=== PATIENT | male | born 1945 | race African-American/Black ===

== ENCOUNTER 2023-04-18 14:09 | Inpatient (IN) | payer OTHER ==
[2023-04-18 14:36] VITALS: BMI 20.9
[2023-04-18 15:22] LABS: VENOUS BASE EXCESS -2.4 mmol/L (-2-2); VENOUS O2 SATURATION 56.8 % (70-80); VENOUS PCO2 45.7 mmHg (38-52); VENOUS PH 7.33 (7.310-7.410)
[2023-04-18 15:23] LABS: HEMOGLOBIN 7.4 GM/dL (11.7-16.9); MCH 29.6 pg (25.7-33.7); MCHC 32.4 g/dl (32.0-35.9); MEAN CELL VOLUME 91.5 fl (80-96); PLATELET COUNT 131 10^3/uL (134-434); RBC 2.51 M/mm3 (4.00-5.60); WHITE BLOOD COUNT 15.3 K/mm3 (4.0-10.0)
[2023-04-18 15:31] LABS: INR 1.16 (0.83-1.09); PROTHROMBIN TIME (PATIENT) 13.4 SEC (9.7-13.0)
[2023-04-18 15:33] LABS: ACTIVATED PTT 41.4 SECONDS (25.2-36.5)
[2023-04-18] MEDS ORDERED: VANCOMYCIN 1 GRAM (PRE-DOCKED) 1,000 MG/250 ML BAG IVPB ONE ×2 (15:34→18:12)
[2023-04-18] MEDS ORDERED: PIPERACILLIN/TAZOB 4.5 GM 4.5 GM in DEXTROSE 5%-WATER 100 ML IVPB ONE (15:34)
[2023-04-18] MEDS ORDERED: SODIUM CHLORIDE 0.9% 500 ML INFUS.BAG IV ONE (15:49)
[2023-04-18 15:57] LABS: ANISOCYTOSIS 0; CORRECTED WBC 11.17 K/mm3; HELMET CELLS 0; HOWELL-JOLLY BODIES 0; MACROCYTOSIS 0; OVALOCYTE 0; ROULEAU 0; SICKELED CELLS 0; TARGET CELLS 0; TEAR DROP CELLS 0; TOXIC GRANULATION 0
[2023-04-18 16:06] LABS: POTASSIUM 3.5 mmol/L (3.5-5.1)
[2023-04-18 16:07] LABS: CALCIUM 8.4 mg/dL (8.5-10.1)
[2023-04-18 16:08] LABS: ALBUMIN 1.5 g/dl (3.4-5.0); BLOOD UREA NITROGEN 42.9 mg/dL (7-18); MAGNESIUM 1.8 mg/dL (1.8-2.4)
[2023-04-18 16:11] LABS: CREATININE 4.5 mg/dL (0.55-1.3)
[2023-04-18 16:13] LABS: BILIRUBIN,TOTAL 0.6 mg/dL (0.2-1); TOT PROT 6.9 g/dl (6.4-8.2)
[2023-04-18] MEDS ORDERED: PIPERACILLIN/TAZOB 4.5 GM 4.5 GM/100 ML BAG IVPB ONE (17:03)
[2023-04-18 17:43] LABS: EPI CELLS 12 /uL (0-25.1); HYALINE CASTS 6 /uL (0-3.1); URINE APPEARANCE TURBID; URINE BACTERIA >9,000 /uL (0-1359); URINE BILIRUBIN NEGATIVE (NEGATIVE); URINE COLOR YELLOW; URINE GLUCOSE (UA) NEGATIVE (NEGATIVE); URINE KETONE NEGATIVE (NEGATIVE); URINE LEUK ESTERASE 3+ (NEGATIVE); URINE NITRITE POSITIVE (NEGATIVE); URINE PROTEIN 3+ (NEGATIVE); URINE RBC 2251 /uL (0-23.9); URINE WBC 7324 /uL (0-25.8)
[2023-04-18] MEDS ORDERED: LACTATED RINGERS SOLUTION 1000 ML INFUS.BAG IV ONE (21:29)
[2023-04-18] MEDS ORDERED: SODIUM CHLORIDE 0.9% 1000 ML INFUS.BAG IV ONE (21:33)
[2023-04-18 22:42] LABS: BASO % 0.8 % (0-2.0); EOS % 0.4 % (0-4.5); HEMATOCRIT 20.8 % (35.4-49); MCH 29.2 pg (25.7-33.7); MEAN CELL VOLUME 91.1 fl (80-96); MEAN PLT VOLUME 9.2 fl (7.5-11.1); MONO % 4.7 % (3.8-10.2); NEUT % 77.1 % (42.8-82.8); PLATELET COUNT 130 10^3/uL (134-434); RBC 2.28 M/mm3 (4.00-5.60); RDW 16.7 % (11.9-15.9)
[2023-04-18 22:51] LABS: HEMOGLOBIN 6.7 GM/dL (11.7-16.9)
[2023-04-18 23:14] LABS: N-TERMINAL BNP 900.7 pg/ml (5-450)
[2023-04-18 23:24] LABS: ANISOCYTOSIS 2+; MACROCYTOSIS 0; ROULEAU 1+; TARGET CELLS 1+; TEAR DROP CELLS 1+
[2023-04-18 23:55] LABS: RETICULOCYTES 3.82 % (0.5-1.5)
[2023-04-18 23:56] LABS: BILIRUBIN,DIRECT 0.4 mg/dL (0.0-0.2)
[2023-04-18 23:59] LABS: BILIRUBIN,TOTAL 0.6 mg/dL (0.2-1)
[2023-04-19 00:16] LABS: ERYTHROCYTE SEDIMENTATION RATE 79 mm/hr (0-20)
[2023-04-19] MEDS ORDERED: VANCOMYCIN 1,000 MG in DEXTROSE 5%-WATER - 250 ML IVPB SCH (02:15)
[2023-04-19 09:58] LABS: HEMOGLOBIN 7.4 GM/dL (11.7-16.9); MCH 28.6 pg (25.7-33.7); MCHC 31.9 g/dl (32.0-35.9); MEAN CELL VOLUME 89.5 fl (80-96); MEAN PLT VOLUME 9.3 fl (7.5-11.1); PLATELET COUNT 127 10^3/uL (134-434); RBC 2.57 M/mm3 (4.00-5.60); RDW 16.6 % (11.9-15.9)
[2023-04-19 09:59] LABS: WHITE BLOOD COUNT 23.8 K/mm3 (4.0-10.0)
[2023-04-19 10:06] LABS: POTASSIUM 3.4 mmol/L (3.5-5.1)
[2023-04-19 10:11] LABS: BLOOD UREA NITROGEN 40.6 mg/dL (7-18); CALCIUM 7.8 mg/dL (8.5-10.1); MAGNESIUM 1.6 mg/dL (1.8-2.4)
[2023-04-19 10:14] LABS: CREATININE 4.5 mg/dL (0.55-1.3)
[2023-04-19 10:53] LABS: ANISOCYTOSIS 1+; CORRECTED WBC 14.78 K/mm3; MACROCYTOSIS 1+; TARGET CELLS 2+
[2023-04-19] MEDS: MEROPENEM 1 GM in DEXTROSE 5%-WATER 100 ML IVPB SCH (13:06)
[2023-04-19] MEDS ORDERED: VANCOMYCIN/WATER FOR INJ (PEG) 750 MG/150 ML BAG IVPB SCH (18:00)
[2023-04-20 09:32] LABS: HEMATOCRIT 26.6 % (35.4-49); HEMOGLOBIN 8.6 GM/dL (11.7-16.9); MCH 29.3 pg (25.7-33.7); MCHC 32.5 g/dl (32.0-35.9); MEAN CELL VOLUME 90.3 fl (80-96); MEAN PLT VOLUME 9.4 fl (7.5-11.1); PLATELET COUNT 158 10^3/uL (134-434); RBC 2.94 M/mm3 (4.00-5.60); RDW 16.6 % (11.9-15.9)
[2023-04-20 09:33] LABS: WHITE BLOOD COUNT 22.6 K/mm3 (4.0-10.0)
[2023-04-20 09:41] LABS: CHLORIDE 114 mmol/L (98-107); POTASSIUM 3.5 mmol/L (3.5-5.1); SODIUM 146 mmol/L (136-145)
[2023-04-20 09:45] LABS: CALCIUM 8.4 mg/dL (8.5-10.1)
[2023-04-20 09:46] LABS: ANION GAP 11 mmol/L (4-13); CO2 21 mmol/L (21-32)
[2023-04-20 09:49] LABS: CREATININE 4.8 mg/dL (0.55-1.3); GLUCOSE,RANDOM 45 mg/dL (74-106)
[2023-04-20] MEDS: MEROPENEM 1 GM in DEXTROSE 5%-WATER 100 ML IVPB SCH (09:50)
[2023-04-20 10:13] LABS: ANISOCYTOSIS 1+; CORRECTED WBC 13.14 K/mm3; MACROCYTOSIS 1+
[2023-04-20] MEDS ORDERED: DEXTROSE 50%-WATER 25 GM/50 ML DISP.SYRIN ONE (10:34)
[2023-04-20] MEDS ORDERED: DEXTROSE 50%-WATER 25 GM/50 ML DISP.SYRIN IVPUSH ONE (10:45)
[2023-04-20] MEDS: DEXTROSE 10%-WATER - 1,000 ML IV SCH (10:45)
[2023-04-20] MEDS ORDERED: VANCOMYCIN/WATER FOR INJ (PEG) 750 MG/150 ML BAG IVPB SCH (18:00)
[2023-04-21] MEDS: DEXTROSE 10%-WATER - 1,000 ML IV SCH (10:59)
[2023-04-21] MEDS: MEROPENEM 1 GM in DEXTROSE 5%-WATER 100 ML IVPB SCH (10:59)
[2023-04-21] MEDS: AMINO ACIDS 4.25%/D5W 1,000 ML IV SCH (14:09)
[2023-04-22] MEDS: AMINO ACIDS 4.25%/D5W 1,000 ML IV SCH ×2 (01:44→17:29)
[2023-04-22 09:46] LABS: HEMATOCRIT 27.8 % (35.4-49); MCH 29.3 pg (25.7-33.7); MCHC 32.5 g/dl (32.0-35.9); MEAN CELL VOLUME 90.4 fl (80-96); MEAN PLT VOLUME 9.1 fl (7.5-11.1); PLATELET COUNT 160 10^3/uL (134-434); RBC 3.08 M/mm3 (4.00-5.60); RDW 16.9 % (11.9-15.9)
[2023-04-22 09:58] LABS: POTASSIUM 3.9 mmol/L (3.5-5.1)
[2023-04-22 10:05] LABS: BLOOD UREA NITROGEN 54.1 mg/dL (7-18); CALCIUM 8.7 mg/dL (8.5-10.1)
[2023-04-22 10:07] LABS: CREATININE 4.9 mg/dL (0.55-1.3)
[2023-04-22 10:08] LABS: BILIRUBIN,TOTAL 0.7 mg/dL (0.2-1); TOT PROT 6.4 g/dl (6.4-8.2)
[2023-04-22] MEDS: MEROPENEM 1 GM in DEXTROSE 5%-WATER 100 ML IVPB SCH (10:08)
[2023-04-22 10:13] LABS: ALBUMIN 1.1 g/dl (3.4-5.0)
[2023-04-22] MEDS ORDERED: LIDOCAINE HCL 1%, 10 MG/ML (20ML VIAL) ONE (10:39)
[2023-04-22] MEDS ORDERED: HEPARIN NA (PORCINE) 5,000 UNITS/ML 1ML VIAL ONE (10:40)
[2023-04-22 11:51] LABS: WHITE BLOOD COUNT 19.5 K/mm3 (4.0-10.0)
[2023-04-22 11:58] LABS: ANISOCYTOSIS 0; CORRECTED WBC 10.71 K/mm3; MACROCYTOSIS 0; TARGET CELLS 2+
[2023-04-22] MEDS ORDERED: PROPOFOL 20 ML ONE (12:42)
[2023-04-22] MEDS ORDERED: LIDOCAINE HCL 1%, 10 MG/ML (20ML VIAL) INF ONE (12:45)
[2023-04-22] MEDS ORDERED: VANCOMYCIN 1,000 MG VIAL (RESTRICTED TO ID ONLY) IVPB ONE (12:47)
[2023-04-22] MEDS ORDERED: HEPARIN NA (PORCINE) 1,000 UNITS/ML 10ML M-D VIAL SQ ONE (13:05)
[2023-04-22] MEDS ORDERED: ONDANSETRON 4 MG/2 ML VIAL IVPUSH PRN (13:12)
[2023-04-22] MEDS ORDERED: LACTATED RINGERS SOLUTION 1,000 ML IV SCH (13:15)
[2023-04-22] MEDS ORDERED: SODIUM CHLORIDE 250 ML IV PRN (15:32)
[2023-04-22] MEDS ORDERED: EPOETIN ALFA-EPBX 4,000 UNIT/ML VIAL IVPUSH ONE (15:45)
[2023-04-23] MEDS: AMINO ACIDS 4.25%/D5W 1,000 ML IV SCH ×2 (03:00→15:45)
[2023-04-23] MEDS: MEROPENEM 1 GM in DEXTROSE 5%-WATER 100 ML IVPB SCH (09:48)
[2023-04-24] MEDS: AMINO ACIDS 4.25%/D5W 1,000 ML IV SCH ×2 (02:03→16:16)
[2023-04-24 06:35] VITALS: RESP 18
[2023-04-24] MEDS ORDERED: SODIUM CHLORIDE 250 ML IV PRN (09:39)
[2023-04-24] MEDS ORDERED: EPOETIN ALFA-EPBX 4,000 UNIT/ML VIAL SQ ONE (09:50)
[2023-04-24] MEDS: MEROPENEM 1 GM in DEXTROSE 5%-WATER 100 ML IVPB SCH (11:35)
[2023-04-25] MEDS: AMINO ACIDS 4.25%/D5W 1,000 ML IV SCH ×2 (02:25→16:00)
[2023-04-25] MEDS: MEROPENEM 1 GM in DEXTROSE 5%-WATER 100 ML IVPB SCH (10:20)
[2023-04-25 16:00] VITALS: BP 131/69; PULSE 99; TEMP 97.7
== END 2023-04-25 19:01 | DRG 698 ==
LOC: JER 14:09 → JERBED 21:44 → J5S 04-19 03:00
PROVIDERS: ADMIT Internal Medicine; ATTEND Family Medicine
PROC: 30233N1 Transfusion of Nonautologous Red Blood Cells into Peripheral Vein, Percutaneous Approach (ICD-10-PCS; 2023-04-19)
PROC: 05HN33Z Insertion of Infusion Device into Left Internal Jugular Vein, Percutaneous Approach (ICD-10-PCS; principal; 2023-04-21)
PROC: B514ZZA Fluoroscopy of Left Jugular Veins, Guidance (ICD-10-PCS; 2023-04-21)
PROC: 05PYX3Z Removal of Infusion Device from Upper Vein, External Approach (ICD-10-PCS; 2023-04-21)
PROC: 5A1D70Z Performance of Urinary Filtration, Intermittent, Less than 6 Hours Per Day (ICD-10-PCS; 2023-04-22)
PROC: 5A1D70Z Performance of Urinary Filtration, Intermittent, Less than 6 Hours Per Day (ICD-10-PCS; 2023-04-24)
DX: T83.511A Infection and inflammatory reaction due to indwelling urethral catheter, initial encounter (principal); A41.89 Other specified sepsis; G93.41 Metabolic encephalopathy; N18.6 End stage renal disease; K92.2 Gastrointestinal hemorrhage, unspecified; R64 Cachexia; T82.7XXA Infection and inflammatory reaction due to other cardiac and vascular devices, implants and grafts, initial encounter; Y84.6 Urinary catheterization as the cause of abnormal reaction of the patient, or of later complication, without mention of misadventure at the time of the procedure; N39.0 Urinary tract infection, site not specified; E03.9 Hypothyroidism, unspecified; R62.7 Adult failure to thrive; D63.1 Anemia in chronic kidney disease; K52.9 Noninfective gastroenteritis and colitis, unspecified; N31.9 Neuromuscular dysfunction of bladder, unspecified; E87.6 Hypokalemia; N40.0 Benign prostatic hyperplasia without lower urinary tract symptoms; L89.151 Pressure ulcer of sacral region, stage 1; Y83.8 Other surgical procedures as the cause of abnormal reaction of the patient, or of later complication, without mention of misadventure at the time of the procedure; Z68.21 Body mass index [BMI] 21.0-21.9, adult
CPT/HCPCS: 36415; 36430; 70450-TC; 71045-TC-FY; 71250-TC; 74176-TC; 76000-TC-FY; 80048; 80053; 81003; 82140; 82247; 82248; 82272; 82728; 82803; 82962; 83010; 83540; 83550; 83605; 83615; 83735; 83880; 84100; 84436; 84443; 84466; 84479; 84484; 85025; 85027; 85045; 85610; 85651; 85730; 86140; 86705; 86803; 86850; 86900; 86901; 86922; 87040; 87086; 87186; 87340; 87517; 87635; 93005; 93010; 94760; 99285-25; C1750; G0480; J1644; P9058; Q5106

== ENCOUNTER 2023-06-18 10:56 | Inpatient (IN) | payer OTHER ==
[2023-06-18] MEDS ORDERED: DEXTROSE 50%-WATER 25 GM/50 ML DISP.SYRIN ONE (11:10)
[2023-06-18] MEDS: SODIUM CHLORIDE 1,565 ML IV ONE (12:10)
[2023-06-18 12:41] LABS: EPI CELLS 3 /uL (0-25.1); HYALINE CASTS 0 /uL (0-3.1); URINE APPEARANCE TURBID; URINE BACTERIA >9,000 /uL (0-1359); URINE BILIRUBIN 1+ (NEGATIVE); URINE COLOR DK YELLOW; URINE GLUCOSE (UA) NEGATIVE (NEGATIVE); URINE KETONE TRACE (NEGATIVE); URINE LEUK ESTERASE 3+ (NEGATIVE); URINE NITRITE NEGATIVE (NEGATIVE); URINE PROTEIN 2+ (NEGATIVE); URINE RBC 54 /uL (0-23.9); URINE WBC 1666 /uL (0-25.8)
[2023-06-18] MEDS: ACETAMINOPHEN 1000 MG/100 ML BAG IVPB ONE (12:43)
[2023-06-18] MEDS ORDERED: ACETAMINOPHEN INJECTION 100 ML IVPB ONE (12:43)
[2023-06-18] MEDS ORDERED: AZTREONAM 1 GM VIAL (RESTRICTED TO ID) ONE (12:46)
[2023-06-18] MEDS: AZTREONAM 1 GM in DEXTROSE 5%-WATER - 50 ML IVPB ONE (13:33)
[2023-06-18 13:37] LABS: VENOUS BASE EXCESS -4.1 mmol/L (-2-2); VENOUS O2 SATURATION 65.6 % (70-80); VENOUS PCO2 36.6 mmHg (38-52); VENOUS PH 7.371 (7.310-7.410)
[2023-06-18] MEDS: SODIUM CHLORIDE 0.9% 500 ML INFUS.BAG IV ONE (13:44)
[2023-06-18 13:49] LABS: INR 1.34 (0.83-1.09); PROTHROMBIN TIME (PATIENT) 15.5 SEC (9.7-13.0)
[2023-06-18 13:51] LABS: ACTIVATED PTT 33.3 SECONDS (25.2-36.5)
[2023-06-18 13:59] LABS: HEMATOCRIT 19.2 % (35.4-49); MCH 29.1 pg (25.7-33.7); MCHC 32.4 g/dl (32.0-35.9); MEAN CELL VOLUME 89.9 fl (80-96); MEAN PLT VOLUME 9.6 fl (7.5-11.1); PLATELET COUNT 101 10^3/uL (134-434); RBC 2.14 M/mm3 (4.00-5.60); RDW 19.9 % (11.9-15.9)
[2023-06-18 14:03] LABS: HEMOGLOBIN 6.2 GM/dL (11.7-16.9)
[2023-06-18 14:05] LABS: POTASSIUM 3.9 mmol/L (3.5-5.1)
[2023-06-18 14:07] LABS: CALCIUM 8.6 mg/dL (8.5-10.1)
[2023-06-18 14:08] LABS: ALBUMIN 1.3 g/dl (3.4-5.0); BLOOD UREA NITROGEN 55.3 mg/dL (7-18); MAGNESIUM 1.9 mg/dL (1.8-2.4)
[2023-06-18 14:11] LABS: PHOSPHOROUS 2.9 mg/dL (2.5-4.9)
[2023-06-18 14:14] LABS: LACTIC ACID 6.4 mmol/L (0.4-2.0)
[2023-06-18 14:16] LABS: N-TERMINAL BNP 6195.4 pg/ml (5-450)
[2023-06-18 14:44] LABS: ANISOCYTOSIS 1+; CORRECTED WBC 10.81 K/mm3; MACROCYTOSIS 0
[2023-06-18] MEDS ORDERED: NOREPINEPHRINE BITARTRATE 4 MG/4 ML ML IV ONE (15:30)
[2023-06-18] MEDS ORDERED: NOREPINEPHRINE BITARTRATE/D5W 8 MG/250 ML BAG IVPB ONE (15:40)
[2023-06-18] MEDS: NOREPINEPHRINE BITARTRATE/D5W 8 MG/250 ML BAG IVPB SCH (15:49)
[2023-06-18] MEDS: PANTOPRAZOLE SODIUM 40 MG VIAL IVPUSH SCH (18:18)
[2023-06-18] MEDS: MEROPENEM 1 GM in DEXTROSE 5%-WATER 100 ML IVPB SCH (18:19)
[2023-06-18] MEDS: MUPIROCIN 2% TOPICAL OINTMENT FOR DECOLONIZATION NS SCH (22:00)
[2023-06-18] MEDS: CHLORHEXIDINE GLUCONATE 4% CLEANSER FOR DECOLONIZATION TP SCH (22:01)
[2023-06-19] MEDS: ACETAMINOPHEN 1000 MG/100 ML BAG IVPB PRN (04:21)
[2023-06-19 06:34] LABS: ARTERIAL BLD GAS O2 SATURATION 96.4 % (95-98); ARTERIAL BLOOD GAS BASE EXCESS -3.5 mmol/L (-2-2); ARTERIAL BLOOD GAS PO2 79.6 mmHg (80-100)
[2023-06-19 06:35] LABS: ALLENS TEST POSITIVE
[2023-06-19 07:07] LABS: HEMATOCRIT 29.4 % (35.4-49); HEMOGLOBIN 10.1 GM/dL (11.7-16.9); MCH 29.3 pg (25.7-33.7); MCHC 34.3 g/dl (32.0-35.9); MEAN CELL VOLUME 85.4 fl (80-96); MEAN PLT VOLUME 9.2 fl (7.5-11.1); PLATELET COUNT 66 10^3/uL (134-434); RBC 3.44 M/mm3 (4.00-5.60); RDW 20.3 % (11.9-15.9)
[2023-06-19 07:09] LABS: WHITE BLOOD COUNT 10.2 K/mm3 (4.0-10.0)
[2023-06-19 07:13] LABS: POTASSIUM 3.9 mmol/L (3.5-5.1)
[2023-06-19 07:19] LABS: ALBUMIN 1.2 g/dl (3.4-5.0); BLOOD UREA NITROGEN 66.5 mg/dL (7-18); CALCIUM 9.1 mg/dL (8.5-10.1); MAGNESIUM 1.8 mg/dL (1.8-2.4)
[2023-06-19 07:22] LABS: CREATININE 3.9 mg/dL (0.55-1.3)
[2023-06-19 07:23] LABS: BILIRUBIN,TOTAL 3.2 mg/dL (0.2-1); LACTIC ACID 3.5 mmol/L (0.4-2.0)
[2023-06-19] MEDS: VANCOMYCIN 500 MG in DEXTROSE 5%-WATER - 100 ML IVPB ONE (08:30)
[2023-06-19] MEDS: VASopressin 40 UNITS/100 ML BAG IV SCH (08:44)
[2023-06-19] MEDS ORDERED: DEXTROSE 50%-WATER 25 GM/50 ML DISP.SYRIN ONE (09:11)
[2023-06-19] MEDS: HYDROCORTISONE SOD SUCCINATE 100 MG/2 ML VIAL IVPUSH SCH (09:15)
[2023-06-19 09:23] LABS: ANISOCYTOSIS 1+; MACROCYTOSIS 0
[2023-06-19] MEDS: DEXTROSE 50%-WATER 25 GM/50 ML DISP.SYRIN IVPUSH ONE (09:24)
[2023-06-19] MEDS: NOREPINEPHRINE BITARTRATE 16,000 MCG in SODIUM CHLORIDE 484 ML IV SCH (09:28)
[2023-06-19] MEDS ORDERED: MEROPENEM 1 GM in DEXTROSE 5%-WATER 100 ML IVPB SCH (10:00)
[2023-06-19] MEDS ORDERED: PNEUMOC 20-VAL CONJ-DIP CRM/PF 0.5 ML SYRINGE IM ONE (10:00)
[2023-06-19] MEDS ORDERED: HYDROCORTISONE SOD SUCCINATE 100 MG/2 ML VIAL IVPUSH SCH (10:00)
[2023-06-19] MEDS: NOREPINEPHRINE BITARTRATE 4,000 MCG in DEXTROSE 5%-WATER - 496 ML IV SCH (10:09)
[2023-06-19 15:22] LABS: LACTIC ACID 3.5 mmol/L (0.4-2.0)
[2023-06-19] MEDS: FLUDROCORTISONE ACETATE 0.1 MG TABLET (FP) NGT SCH (15:36)
[2023-06-19] MEDS ORDERED: SODIUM CHLORIDE 250 ML IV PRN (16:30)
[2023-06-19] MEDS: EPOETIN ALFA-EPBX 3,000 UNIT/ML VIAL IVPUSH ONE (17:45)
[2023-06-20 07:52] LABS: POTASSIUM 4.5 mmol/L (3.5-5.1)
[2023-06-20 07:55] LABS: CALCIUM 9.1 mg/dL (8.5-10.1)
[2023-06-20 07:56] LABS: ALBUMIN 1.2 g/dl (3.4-5.0); BLOOD UREA NITROGEN 49.6 mg/dL (7-18); MAGNESIUM 1.9 mg/dL (1.8-2.4)
[2023-06-20 07:58] LABS: PHOSPHOROUS 3.7 mg/dL (2.5-4.9)
[2023-06-20 07:59] LABS: CREATININE 2.5 mg/dL (0.55-1.3)
[2023-06-20 08:00] LABS: BILIRUBIN,TOTAL 2.6 mg/dL (0.2-1); TOT PROT 6.1 g/dl (6.4-8.2)
[2023-06-20 08:02] LABS: HEMATOCRIT 31.2 % (35.4-49); HEMOGLOBIN 10.3 GM/dL (11.7-16.9); MCH 28.3 pg (25.7-33.7); MEAN CELL VOLUME 85.7 fl (80-96); MEAN PLT VOLUME 10.6 fl (7.5-11.1); PLATELET COUNT 58 10^3/uL (134-434); RBC 3.64 M/mm3 (4.00-5.60); RDW 20.3 % (11.9-15.9)
[2023-06-20 08:03] LABS: INR 1.56 (0.83-1.09)
[2023-06-20 08:05] LABS: WHITE BLOOD COUNT 14.8 K/mm3 (4.0-10.0)
[2023-06-20 08:05] LABS: ACTIVATED PTT 30.5 SECONDS (25.2-36.5)
[2023-06-20] MEDS ORDERED: VANCOMYCIN 750 MG in DEXTROSE 5%-WATER - 150 ML IVPB SCH (09:15)
[2023-06-20 10:15] LABS: ANISOCYTOSIS 1+; MACROCYTOSIS 0; TARGET CELLS 2+
[2023-06-20] MEDS: VANCOMYCIN/WATER FOR INJ (PEG) 750 MG/150 ML BAG IVPB SCH (10:24)
[2023-06-21 07:27] LABS: HEMATOCRIT 30.6 % (35.4-49); HEMOGLOBIN 10.5 GM/dL (11.7-16.9); MCH 29.4 pg (25.7-33.7); MCHC 34.4 g/dl (32.0-35.9); MEAN CELL VOLUME 85.5 fl (80-96); MEAN PLT VOLUME 9.2 fl (7.5-11.1); PLATELET COUNT 63 10^3/uL (134-434); RBC 3.58 M/mm3 (4.00-5.60); RDW 20.6 % (11.9-15.9); WHITE BLOOD COUNT 11.9 K/mm3 (4.0-10.0)
[2023-06-21 07:29] LABS: POTASSIUM 4.2 mmol/L (3.5-5.1)
[2023-06-21 07:31] LABS: CALCIUM 8.6 mg/dL (8.5-10.1)
[2023-06-21 07:32] LABS: ALBUMIN 1.2 g/dl (3.4-5.0); MAGNESIUM 2.4 mg/dL (1.8-2.4)
[2023-06-21 07:35] LABS: CREATININE 3.4 mg/dL (0.55-1.3); PHOSPHOROUS 3.4 mg/dL (2.5-4.9)
[2023-06-21 07:36] LABS: BILIRUBIN,TOTAL 1.8 mg/dL (0.2-1); TOT PROT 6.2 g/dl (6.4-8.2)
[2023-06-21 07:44] LABS: BLOOD UREA NITROGEN 96.4 mg/dL (7-18)
[2023-06-21] MEDS ORDERED: VANCOMYCIN/WATER FOR INJ (PEG) 750 MG/150 ML BAG IVPB SCH (10:00)
[2023-06-21 10:43] LABS: ANISOCYTOSIS 2+; MACROCYTOSIS 1+; TARGET CELLS 2+
[2023-06-21] MEDS ORDERED: MIDODRINE HCL 5 MG TABLET NGT SCH (11:15)
[2023-06-21] MEDS ORDERED: LACTATED RINGERS SOLUTION 1,000 ML/1,000 ML INFUS.BAG IV SCH (11:30)
[2023-06-21] MEDS: MIDODRINE HCL 2.5 MG TABLET NGT SCH (12:00)
[2023-06-21 14:02] VITALS: BMI 16.9
[2023-06-21] MEDS: INSULIN ASPART SLIDING SCALE (NOVOLOG) 1 VIAL SQ SCH (14:45)
[2023-06-21] MEDS: MIDODRINE HCL 5 MG TABLET NGT SCH (20:10)
[2023-06-21] MEDS: HYDROCORTISONE SOD SUCCINATE 100 MG/2 ML VIAL IVPUSH SCH (21:53)
[2023-06-21] MEDS ORDERED: HYDROCORTISONE SOD SUCCINATE 100 MG/2 ML VIAL IVPUSH SCH (22:00)
[2023-06-22 06:33] LABS: HEMATOCRIT 29.4 % (35.4-49); HEMOGLOBIN 9.9 GM/dL (11.7-16.9); MCHC 33.7 g/dl (32.0-35.9); MEAN PLT VOLUME 9.1 fl (7.5-11.1); RBC 3.42 M/mm3 (4.00-5.60); RDW 20.5 % (11.9-15.9); WHITE BLOOD COUNT 16.7 K/mm3 (4.0-10.0)
[2023-06-22 06:47] LABS: CHLORIDE 102 mmol/L (98-107); POTASSIUM 3.9 mmol/L (3.5-5.1); SODIUM 139 mmol/L (136-145)
[2023-06-22 06:55] LABS: ANION GAP 11 mmol/L (4-13); CALCIUM 9.2 mg/dL (8.5-10.1); CO2 27 mmol/L (21-32); GLUCOSE,RANDOM 187 mg/dL (74-106); MAGNESIUM 2.3 mg/dL (1.8-2.4)
[2023-06-22 06:56] LABS: ALBUMIN 1.2 g/dl (3.4-5.0)
[2023-06-22 06:57] LABS: PHOSPHOROUS 3.6 mg/dL (2.5-4.9); SGOT/AST 159 U/L (15-37); SGPT/ALT 82 U/L (13-61)
[2023-06-22 06:59] LABS: CREATININE 3.9 mg/dL (0.55-1.3)
[2023-06-22 07:00] LABS: BILIRUBIN,TOTAL 2.6 mg/dL (0.2-1); TOT PROT 6.3 g/dl (6.4-8.2)
[2023-06-22 07:05] LABS: ALK PHOS 302 U/L (45-117); BLOOD UREA NITROGEN 137.2 mg/dL (7-18)
[2023-06-22 09:49] LABS: PLATELET COUNT 48 10^3/uL (134-434)
[2023-06-22] MEDS: SODIUM CHLORIDE IVPB ONE (09:53)
[2023-06-22] MEDS: DAPTOMYCIN IVPB ONE (09:53)
[2023-06-22] MEDS ORDERED: SODIUM CHLORIDE 250 ML IV PRN (12:39)
[2023-06-22] MEDS ORDERED: NOREPINEPHRINE BITARTRATE 4 MG/4 ML ML IV ONE (13:00)
[2023-06-22] MEDS ORDERED: INSULIN (NOVOLOG) ASPART 100 UNITS/ML 10ML VIAL ONE (15:54)
[2023-06-22] MEDS: NOREPINEPHRINE 0.9 % NACL 8 MG/250 ML BAG IVPB SCH (15:56)
[2023-06-22] MEDS: NOREPINEPHRINE BITARTRATE 4,000 MCG in DEXTROSE 5%-WATER - 496 ML IV SCH (15:56)
[2023-06-22] MEDS: DAPTOMYCIN 200 MG in SODIUM CHLORIDE 50 ML IVPB ONE (23:24)
[2023-06-23 07:42] LABS: HEMATOCRIT 27.6 % (35.4-49); HEMOGLOBIN 9.6 GM/dL (11.7-16.9); MCH 29.4 pg (25.7-33.7); MCHC 34.7 g/dl (32.0-35.9); MEAN CELL VOLUME 84.6 fl (80-96); MEAN PLT VOLUME 9.2 fl (7.5-11.1); PLATELET COUNT 55 10^3/uL (134-434); RBC 3.27 M/mm3 (4.00-5.60); RDW 20.5 % (11.9-15.9)
[2023-06-23 07:46] LABS: WHITE BLOOD COUNT 18.8 K/mm3 (4.0-10.0)
[2023-06-23 07:59] LABS: POTASSIUM 3.5 mmol/L (3.5-5.1)
[2023-06-23 08:14] LABS: ALBUMIN 1.3 g/dl (3.4-5.0); CALCIUM 8.4 mg/dL (8.5-10.1)
[2023-06-23 08:16] LABS: CREATININE 2.8 mg/dL (0.55-1.3); PHOSPHOROUS 3.4 mg/dL (2.5-4.9)
[2023-06-23 08:19] LABS: BILIRUBIN,TOTAL 2.4 mg/dL (0.2-1); TOT PROT 6.3 g/dl (6.4-8.2)
[2023-06-23 08:28] LABS: BLOOD UREA NITROGEN 96.5 mg/dL (7-18)
[2023-06-23 10:11] LABS: ANISOCYTOSIS 1+; MACROCYTOSIS 0; TARGET CELLS 1+; TEAR DROP CELLS 1+
[2023-06-23] MEDS ORDERED: INSULIN (NOVOLOG) ASPART 100 UNITS/ML 10ML VIAL ONE (17:53)
[2023-06-23] MEDS: HYDROCORTISONE SOD SUCCINATE 100 MG/2 ML VIAL IVPUSH SCH (18:02)
[2023-06-23] MEDS: INSULIN (LEVEMIR) 100 UNITS/ML UNITS SQ SCH (21:29)
[2023-06-23] MEDS ORDERED: HYDROCORTISONE SOD SUCCINATE 100 MG/2 ML VIAL IVPUSH SCH (22:00)
[2023-06-24] MEDS ORDERED: HEPARIN NA (PORCINE) 5,000 UNITS/ML 1ML VIAL SQ SCH (06:00)
[2023-06-24] MEDS: INSULIN ASPART SLIDING SCALE (NOVOLOG) 1 VIAL SQ SCH (06:02)
[2023-06-24] MEDS ORDERED: LYTES/YERBA SANTA 60 ML SPRAY MM SCH (07:45)
[2023-06-24 07:56] LABS: CHLORIDE 103 mmol/L (98-107); SODIUM 140 mmol/L (136-145)
[2023-06-24 08:27] LABS: HEMATOCRIT 28.5 % (35.4-49); HEMOGLOBIN 9.6 GM/dL (11.7-16.9); MCHC 33.7 g/dl (32.0-35.9); MEAN PLT VOLUME 10.1 fl (7.5-11.1); PLATELET COUNT 92 10^3/uL (134-434); RBC 3.31 M/mm3 (4.00-5.60); RDW 20.4 % (11.9-15.9)
[2023-06-24 08:28] LABS: WHITE BLOOD COUNT 22.5 K/mm3 (4.0-10.0)
[2023-06-24 08:33] LABS: CALCIUM 8.4 mg/dL (8.5-10.1)
[2023-06-24 08:34] LABS: ALBUMIN 1.4 g/dl (3.4-5.0); ANION GAP 12 mmol/L (4-13); CO2 25 mmol/L (21-32); GLUCOSE,RANDOM 310 mg/dL (74-106); MAGNESIUM 2.2 mg/dL (1.8-2.4)
[2023-06-24 08:36] LABS: PHOSPHOROUS 3.6 mg/dL (2.5-4.9); SGOT/AST 175 U/L (15-37); SGPT/ALT 136 U/L (13-61)
[2023-06-24 08:37] LABS: BILIRUBIN,TOTAL 1.6 mg/dL (0.2-1); CREATININE 3.5 mg/dL (0.55-1.3); TOT PROT 6.4 g/dl (6.4-8.2)
[2023-06-24 08:38] LABS: ALK PHOS 370 U/L (45-117)
[2023-06-24 08:58] LABS: BLOOD UREA NITROGEN 131.6 mg/dL (7-18)
[2023-06-24] MEDS: AMINO ACIDS/PROTEIN HYDROLYS 30 ML LIQUID.PKT GT SCH (09:23)
[2023-06-24] MEDS ORDERED: SODIUM CHLORIDE 500 ML IV STA (10:28)
[2023-06-24] MEDS ORDERED: SODIUM CHLORIDE 250 ML IV PRN (11:18)
[2023-06-24 12:07] LABS: CORRECTED WBC 18.15 K/mm3
[2023-06-24] MEDS: SODIUM CHLORIDE IVPB SCH (12:30)
[2023-06-24] MEDS: DAPTOMYCIN IVPB SCH (12:30)
[2023-06-24] MEDS: MIDODRINE HCL 5 MG TABLET NGT SCH (13:36)
[2023-06-24] MEDS: EPOETIN ALFA-EPBX 4,000 UNIT/ML VIAL SQ ONE (19:17)
[2023-06-24] MEDS: SODIUM CHLORIDE 0.9% 500 ML INFUS.BAG IV ONE (19:58)
[2023-06-25 07:59] LABS: MCH 29.3 pg (25.7-33.7); MCHC 33.2 g/dl (32.0-35.9); MEAN CELL VOLUME 88.5 fl (80-96); MEAN PLT VOLUME 10.3 fl (7.5-11.1); PLATELET COUNT 109 10^3/uL (134-434); RBC 3.05 M/mm3 (4.00-5.60); RDW 20.4 % (11.9-15.9); WHITE BLOOD COUNT 18.3 K/mm3 (4.0-10.0)
[2023-06-25 08:12] LABS: POTASSIUM 3.4 mmol/L (3.5-5.1)
[2023-06-25 08:13] LABS: CALCIUM 8.1 mg/dL (8.5-10.1)
[2023-06-25 08:15] LABS: ALBUMIN 1.4 g/dl (3.4-5.0); MAGNESIUM 1.9 mg/dL (1.8-2.4)
[2023-06-25 08:17] LABS: CREATININE 2.3 mg/dL (0.55-1.3); PHOSPHOROUS 4.4 mg/dL (2.5-4.9)
[2023-06-25 08:18] LABS: BILIRUBIN,TOTAL 1.7 mg/dL (0.2-1); TOT PROT 6.1 g/dl (6.4-8.2)
[2023-06-25 08:35] LABS: BLOOD UREA NITROGEN 79.7 mg/dL (7-18)
[2023-06-25 10:25] LABS: ANISOCYTOSIS 1+; CORRECTED WBC 11.44 K/mm3; MACROCYTOSIS 1+; TARGET CELLS 3+
[2023-06-25] MEDS ORDERED: INSULIN (NOVOLOG) ASPART 100 UNITS/ML 10ML VIAL ONE (12:35)
[2023-06-25] MEDS: chlorproMAZINE HCL 25 MG TABLET PO SCH (14:18)
[2023-06-26 07:22] LABS: CHLORIDE 105 mmol/L (98-107); POTASSIUM 3.5 mmol/L (3.5-5.1); SODIUM 141 mmol/L (136-145)
[2023-06-26 07:24] LABS: CALCIUM 7.5 mg/dL (8.5-10.1)
[2023-06-26 07:25] LABS: ALBUMIN 1.4 g/dl (3.4-5.0); ANION GAP 13 mmol/L (4-13); CO2 24 mmol/L (21-32)
[2023-06-26 07:28] LABS: CREATININE 3.1 mg/dL (0.55-1.3); SGOT/AST 84 U/L (15-37); SGPT/ALT 94 U/L (13-61)
[2023-06-26 07:30] LABS: BILIRUBIN,TOTAL 1.3 mg/dL (0.2-1); TOT PROT 5.7 g/dl (6.4-8.2)
[2023-06-26 07:31] LABS: ALK PHOS 330 U/L (45-117)
[2023-06-26 07:33] LABS: HEMATOCRIT 26.2 % (35.4-49); HEMOGLOBIN 8.8 GM/dL (11.7-16.9); MCH 29.7 pg (25.7-33.7); MCHC 33.6 g/dl (32.0-35.9); MEAN CELL VOLUME 88.4 fl (80-96); MEAN PLT VOLUME 10.5 fl (7.5-11.1); PLATELET COUNT 142 10^3/uL (134-434); RBC 2.96 M/mm3 (4.00-5.60); RDW 21.6 % (11.9-15.9)
[2023-06-26 08:06] LABS: BLOOD UREA NITROGEN 115.6 mg/dL (7-18); GLUCOSE,RANDOM 414 mg/dL (74-106)
[2023-06-26] MEDS ORDERED: INSULIN (LEVEMIR) 100 UNITS/ML UNITS SQ SCH (08:49)
[2023-06-26] MEDS ORDERED: SODIUM CHLORIDE 250 ML IV PRN (09:06)
[2023-06-26] MEDS: INSULIN (NOVOLOG) ASPART 100 UNITS/ML 10ML VIAL SQ ONE (09:16)
[2023-06-26 09:26] LABS: ANISOCYTOSIS 2+; TARGET CELLS 1+; TEAR DROP CELLS 1+; TOXIC GRANULATION 1+
[2023-06-26 09:33] LABS: CORRECTED WBC 19.29 K/mm3; WHITE BLOOD COUNT 21.8 K/mm3 (4.0-10.0)
[2023-06-26] MEDS ORDERED: HYDROCORTISONE SOD SUCCINATE 100 MG/2 ML VIAL IVPUSH SCH (11:40)
[2023-06-26] MEDS: INSULIN ASPART SLIDING SCALE (NOVOLOG) 1 VIAL SQ SCH ×2 (11:57→16:42)
[2023-06-26] MEDS: INSULIN (NOVOLOG) ASPART 100 UNITS/ML 10ML VIAL SQ SCH (16:38)
[2023-06-26] MEDS: HYDROCORTISONE SOD SUCCINATE 100 MG/2 ML VIAL IVPUSH SCH (22:38)
[2023-06-26] MEDS: INSULIN (LEVEMIR) 100 UNITS/ML UNITS SQ SCH (22:40)
[2023-06-27 07:41] LABS: HEMATOCRIT 29.1 % (35.4-49); HEMOGLOBIN 9.3 GM/dL (11.7-16.9); MCH 29.2 pg (25.7-33.7); MCHC 31.9 g/dl (32.0-35.9); MEAN CELL VOLUME 91.7 fl (80-96); MEAN PLT VOLUME 10.6 fl (7.5-11.1); PLATELET COUNT 189 10^3/uL (134-434); RBC 3.18 M/mm3 (4.00-5.60); RDW 23.2 % (11.9-15.9)
[2023-06-27 07:45] LABS: WHITE BLOOD COUNT 28.5 K/mm3 (4.0-10.0)
[2023-06-27 07:50] LABS: CHLORIDE 108 mmol/L (98-107); POTASSIUM 3.7 mmol/L (3.5-5.1); SODIUM 146 mmol/L (136-145)
[2023-06-27 07:54] LABS: CALCIUM 7.9 mg/dL (8.5-10.1)
[2023-06-27 07:55] LABS: ALBUMIN 1.4 g/dl (3.4-5.0); ANION GAP 13 mmol/L (4-13); CO2 24 mmol/L (21-32); GLUCOSE,RANDOM 282 mg/dL (74-106); MAGNESIUM 2.2 mg/dL (1.8-2.4)
[2023-06-27 07:57] LABS: SGPT/ALT 95 U/L (13-61)
[2023-06-27 07:58] LABS: CREATININE 3.4 mg/dL (0.55-1.3); PHOSPHOROUS 6.5 mg/dL (2.5-4.9); SGOT/AST 87 U/L (15-37)
[2023-06-27 07:59] LABS: BILIRUBIN,TOTAL 1.4 mg/dL (0.2-1); TOT PROT 6.1 g/dl (6.4-8.2)
[2023-06-27 08:07] LABS: ALK PHOS 275 U/L (45-117); BLOOD UREA NITROGEN 144.7 mg/dL (7-18)
[2023-06-27 08:43] LABS: ANISOCYTOSIS 2+; MACROCYTOSIS 1+
[2023-06-27] MEDS: SODIUM CHLORIDE 0.9% 500 ML INFUS.BAG IV ONE ×2 (12:15→14:40)
[2023-06-27] MEDS: EPOETIN ALFA-EPBX 4,000 UNIT/ML VIAL IVPUSH ONE (14:50)
[2023-06-27] MEDS: WATER IVPB SCH (17:42)
[2023-06-27] MEDS: DEXTROSE 5% IVPB SCH (17:42)
[2023-06-27] MEDS: CEFTAROLINE FOSAMIL ACETATE IVPB SCH (17:42)
[2023-06-27] MEDS: VASopressin 40 UNITS/100 ML BAG IV SCH (23:55)
[2023-06-28 07:52] LABS: HEMATOCRIT 25.5 % (35.4-49); HEMOGLOBIN 7.9 GM/dL (11.7-16.9); MCH 28.9 pg (25.7-33.7); MEAN CELL VOLUME 93.1 fl (80-96); MEAN PLT VOLUME 10.6 fl (7.5-11.1); PLATELET COUNT 192 10^3/uL (134-434); RBC 2.74 M/mm3 (4.00-5.60); RDW 23.6 % (11.9-15.9)
[2023-06-28 08:11] LABS: POTASSIUM 3.5 mmol/L (3.5-5.1); WHITE BLOOD COUNT 26.5 K/mm3 (4.0-10.0)
[2023-06-28 08:15] LABS: CALCIUM 7.7 mg/dL (8.5-10.1)
[2023-06-28 08:16] LABS: ALBUMIN 1.3 g/dl (3.4-5.0); MAGNESIUM 1.8 mg/dL (1.8-2.4)
[2023-06-28 08:18] LABS: PHOSPHOROUS 5.2 mg/dL (2.5-4.9)
[2023-06-28 08:19] LABS: CREATININE 2.2 mg/dL (0.55-1.3)
[2023-06-28 08:20] LABS: BILIRUBIN,TOTAL 1.1 mg/dL (0.2-1); TOT PROT 5.4 g/dl (6.4-8.2)
[2023-06-28 08:24] LABS: BLOOD UREA NITROGEN 87.8 mg/dL (7-18)
[2023-06-28] MEDS ORDERED: KCL 10 MEQ IVPB 10 MEQ/100 ML INFUS.BAG IVPB SCH (08:45)
[2023-06-28 09:28] LABS: ANISOCYTOSIS 1+; MACROCYTOSIS 1+
[2023-06-28] MEDS ORDERED: SODIUM CHLORIDE 250 ML IV PRN (10:30)
[2023-06-28] MEDS: POTASSIUM CHLORIDE ORAL LIQUID 20 MEQ/15 ML NGT ONE (11:27)
[2023-06-28] MEDS ORDERED: INSULIN (NOVOLOG) ASPART 100 UNITS/ML 10ML VIAL ONE (12:02)
[2023-06-28] MEDS: ALBUMIN HUMAN 25% 12.5 GM/50 ML VIAL IV SCH (14:00)
[2023-06-28] MEDS: EPOETIN ALFA-EPBX 10,000 UNIT/ML VIAL SQ ONE (15:24)
[2023-06-29 11:11] LABS: HEMATOCRIT 23.5 % (35.4-49); HEMOGLOBIN 7.4 GM/dL (11.7-16.9); MCH 28.9 pg (25.7-33.7); MCHC 31.3 g/dl (32.0-35.9); MEAN CELL VOLUME 92.2 fl (80-96); MEAN PLT VOLUME 10.8 fl (7.5-11.1); PLATELET COUNT 214 10^3/uL (134-434); RBC 2.55 M/mm3 (4.00-5.60); RDW 23.6 % (11.9-15.9)
[2023-06-29 11:17] LABS: POTASSIUM 3.5 mmol/L (3.5-5.1)
[2023-06-29 11:19] LABS: CALCIUM 7.9 mg/dL (8.5-10.1); WHITE BLOOD COUNT 26.8 K/mm3 (4.0-10.0)
[2023-06-29 11:20] LABS: ALBUMIN 1.4 g/dl (3.4-5.0); BLOOD UREA NITROGEN 69.6 mg/dL (7-18)
[2023-06-29 11:23] LABS: CREATININE 1.8 mg/dL (0.55-1.3)
[2023-06-29 11:25] LABS: BILIRUBIN,TOTAL 0.8 mg/dL (0.2-1)
[2023-06-29 12:05] LABS: ANISOCYTOSIS 1+; CORRECTED WBC 24.14 K/mm3; MACROCYTOSIS 1+; TARGET CELLS 2+
[2023-06-30 10:22] LABS: HEMATOCRIT 26.2 % (35.4-49); HEMOGLOBIN 8.1 GM/dL (11.7-16.9); MCH 29.2 pg (25.7-33.7); MCHC 31.1 g/dl (32.0-35.9); PLATELET COUNT 246 10^3/uL (134-434); RBC 2.79 M/mm3 (4.00-5.60); RDW 23.8 % (11.9-15.9)
[2023-06-30 10:26] LABS: WHITE BLOOD COUNT 25.4 K/mm3 (4.0-10.0)
[2023-06-30 11:04] LABS: POTASSIUM 3.7 mmol/L (3.5-5.1)
[2023-06-30 11:05] LABS: CALCIUM 7.4 mg/dL (8.5-10.1)
[2023-06-30 11:06] LABS: ALBUMIN 1.4 g/dl (3.4-5.0); BLOOD UREA NITROGEN 89.1 mg/dL (7-18); MAGNESIUM 1.8 mg/dL (1.8-2.4)
[2023-06-30 11:09] LABS: ANISOCYTOSIS 2+; CREATININE 2.3 mg/dL (0.55-1.3); MACROCYTOSIS 1+; PHOSPHOROUS 6.6 mg/dL (2.5-4.9); TARGET CELLS 1+
[2023-06-30 11:10] LABS: TOT PROT 5.3 g/dl (6.4-8.2)
[2023-06-30 11:11] LABS: BILIRUBIN,TOTAL 0.8 mg/dL (0.2-1)
[2023-06-30] MEDS: MIDODRINE HCL 5 MG TABLET NGT SCH (14:37)
[2023-06-30] MEDS: HEPARIN NA (PORCINE) 5,000 UNITS/ML 1ML VIAL SQ SCH (14:38)
[2023-06-30] MEDS: SODIUM CHLORIDE 0.9% 500 ML INFUS.BAG IV ONE ×2 (18:47→22:24)
[2023-07-01 07:15] LABS: HEMATOCRIT 22.9 % (35.4-49); HEMOGLOBIN 7.2 GM/dL (11.7-16.9); MCH 29.2 pg (25.7-33.7); MCHC 31.6 g/dl (32.0-35.9); MEAN CELL VOLUME 92.5 fl (80-96); MEAN PLT VOLUME 10.6 fl (7.5-11.1); PLATELET COUNT 249 10^3/uL (134-434); RBC 2.48 M/mm3 (4.00-5.60); RDW 23.3 % (11.9-15.9)
[2023-07-01 07:21] LABS: WHITE BLOOD COUNT 26.8 K/mm3 (4.0-10.0)
[2023-07-01] MEDS ORDERED: SODIUM CHLORIDE 250 ML IV PRN (07:34)
[2023-07-01 08:12] LABS: POTASSIUM 3.7 mmol/L (3.5-5.1)
[2023-07-01 08:15] LABS: CALCIUM 7.2 mg/dL (8.5-10.1)
[2023-07-01 08:16] LABS: ALBUMIN 1.5 g/dl (3.4-5.0); BLOOD UREA NITROGEN 101.7 mg/dL (7-18)
[2023-07-01 08:19] LABS: CREATININE 2.6 mg/dL (0.55-1.3); MAGNESIUM 1.8 mg/dL (1.8-2.4); PHOSPHOROUS 6.2 mg/dL (2.5-4.9)
[2023-07-01 08:20] LABS: TOT PROT 5.2 g/dl (6.4-8.2)
[2023-07-01 08:21] LABS: BILIRUBIN,TOTAL 0.7 mg/dL (0.2-1)
[2023-07-01 11:05] LABS: ANISOCYTOSIS 3+; MACROCYTOSIS 0; TARGET CELLS 1+
[2023-07-01] MEDS: EPOETIN ALFA-EPBX 4,000 UNIT/ML VIAL IVPUSH ONE (11:45)
[2023-07-01 19:44] LABS: MCH 29.3 pg (25.7-33.7); MCHC 31.6 g/dl (32.0-35.9); MEAN CELL VOLUME 92.6 fl (80-96); MEAN PLT VOLUME 10.3 fl (7.5-11.1); PLATELET COUNT 238 10^3/uL (134-434); RBC 2.38 M/mm3 (4.00-5.60); RDW 23.5 % (11.9-15.9); WHITE BLOOD COUNT 21.2 K/mm3 (4.0-10.0)
[2023-07-02 08:31] LABS: HEMATOCRIT 21.8 % (35.4-49); MCH 29.1 pg (25.7-33.7); MCHC 31.1 g/dl (32.0-35.9); MEAN CELL VOLUME 93.5 fl (80-96); MEAN PLT VOLUME 10.7 fl (7.5-11.1); PLATELET COUNT 250 10^3/uL (134-434); RBC 2.33 M/mm3 (4.00-5.60); RDW 23.4 % (11.9-15.9)
[2023-07-02 08:34] LABS: WHITE BLOOD COUNT 20.4 K/mm3 (4.0-10.0)
[2023-07-02 08:38] LABS: POTASSIUM 3.6 mmol/L (3.5-5.1)
[2023-07-02 08:41] LABS: ALBUMIN 1.4 g/dl (3.4-5.0); CALCIUM 7.2 mg/dL (8.5-10.1); MAGNESIUM 1.7 mg/dL (1.8-2.4)
[2023-07-02 08:44] LABS: CREATININE 1.8 mg/dL (0.55-1.3)
[2023-07-02 08:45] LABS: HEMOGLOBIN 6.8 GM/dL (11.7-16.9); PHOSPHOROUS 5.1 mg/dL (2.5-4.9)
[2023-07-02 08:46] LABS: BILIRUBIN,TOTAL 0.7 mg/dL (0.2-1)
[2023-07-02 08:50] LABS: TOT PROT 4.9 g/dl (6.4-8.2)
[2023-07-02 08:52] LABS: BLOOD UREA NITROGEN 64.2 mg/dL (7-18)
[2023-07-02 09:35] LABS: ANISOCYTOSIS 3+; CORRECTED WBC 17.89 K/mm3; MACROCYTOSIS 1+; TARGET CELLS 2+
[2023-07-02] MEDS ORDERED: INSULIN (NOVOLOG) ASPART 100 UNITS/ML 10ML VIAL ONE ×3 (09:56→15:05)
[2023-07-02] MEDS: MAGNESIUM SULF 50% (8.12 MEQ/2 ML-1 GM VIAL) IVPB ONE (12:28)
[2023-07-02 12:50] LABS: ARTERIAL BLD GAS O2 SATURATION 96.8 % (95-98); ARTERIAL BLOOD GAS PO2 77.5 mmHg (80-100); ARTERIAL BLOOD GAS pH 7.519 (7.350-7.450)
[2023-07-02 12:55] LABS: ALLENS TEST POSITIVE
[2023-07-02] MEDS ORDERED: METOPROLOL TARTRATE 5 MG/5 ML VIAL ONE (14:51)
[2023-07-02] MEDS: METOPROLOL TARTRATE 5 MG/5 ML VIAL IVPUSH ONE (14:53)
[2023-07-02 18:15] LABS: HEMATOCRIT 27.5 % (35.4-49); HEMOGLOBIN 8.7 GM/dL (11.7-16.9); MCH 29.1 pg (25.7-33.7); MCHC 31.7 g/dl (32.0-35.9); MEAN CELL VOLUME 91.9 fl (80-96); MEAN PLT VOLUME 10.5 fl (7.5-11.1); PLATELET COUNT 260 10^3/uL (134-434); RDW 20.7 % (11.9-15.9); WHITE BLOOD COUNT 20.2 K/mm3 (4.0-10.0)
[2023-07-02 18:37] LABS: ADD RBC MORPHOLOGY YES
[2023-07-02 22:19] LABS: ANISOCYTOSIS 2+; MACROCYTOSIS 1+; TARGET CELLS 2+
[2023-07-03] MEDS ORDERED: SODIUM CHLORIDE 250 ML IV PRN (07:11)
[2023-07-03 07:43] LABS: HEMATOCRIT 21.3 % (35.4-49); MCH 29.4 pg (25.7-33.7); MCHC 32.2 g/dl (32.0-35.9); MEAN CELL VOLUME 91.4 fl (80-96); MEAN PLT VOLUME 10.3 fl (7.5-11.1); PLATELET COUNT 216 10^3/uL (134-434); RBC 2.33 M/mm3 (4.00-5.60); RDW 21.4 % (11.9-15.9); WHITE BLOOD COUNT 16.3 K/mm3 (4.0-10.0)
[2023-07-03 07:46] LABS: HEMOGLOBIN 6.9 GM/dL (11.7-16.9)
[2023-07-03 07:57] LABS: POTASSIUM 3.2 mmol/L (3.5-5.1)
[2023-07-03 08:04] LABS: PHOSPHOROUS 4.7 mg/dL (2.5-4.9)
[2023-07-03 08:05] LABS: ALBUMIN 1.3 g/dl (3.4-5.0); BLOOD UREA NITROGEN 81.4 mg/dL (7-18); TOT PROT 4.7 g/dl (6.4-8.2)
[2023-07-03 08:09] LABS: CALCIUM 7.4 mg/dL (8.5-10.1)
[2023-07-03 08:10] LABS: CREATININE 2.1 mg/dL (0.55-1.3)
[2023-07-03 08:56] LABS: ANISOCYTOSIS 2+; MACROCYTOSIS 1+; OVALOCYTE 1+; TARGET CELLS 1+
[2023-07-03] MEDS: PANTOPRAZOLE SODIUM 40 MG VIAL IVPUSH SCH (09:24)
[2023-07-03] MEDS: EPOETIN ALFA-EPBX 10,000 UNIT/ML VIAL IVPUSH ONE (09:40)
[2023-07-03] MEDS ORDERED: DEXTROSE 50%-WATER 25 GM/50 ML DISP.SYRIN ONE (15:14)
[2023-07-03] MEDS: DEXTROSE 50%-WATER 25 GM/50 ML DISP.SYRIN IVPUSH ONE (15:21)
[2023-07-03 18:47] LABS: BASO % 0.2 % (0-2.0); HEMATOCRIT 32.2 % (35.4-49); HEMOGLOBIN 10.8 GM/dL (11.7-16.9); LYMPH % 1.7 % (8-40); MCH 29.7 pg (25.7-33.7); MCHC 33.7 g/dl (32.0-35.9); MEAN CELL VOLUME 88.2 fl (80-96); MONO % 1.6 % (3.8-10.2); NEUT % 96.5 % (42.8-82.8); PLATELET COUNT 178 10^3/uL (134-434); RBC 3.65 M/mm3 (4.00-5.60); RDW 16.9 % (11.9-15.9)
[2023-07-03 19:44] LABS: ANISOCYTOSIS 2+; CORRECTED WBC 10.66 K/mm3; MACROCYTOSIS 1+; OVALOCYTE 1+; TARGET CELLS 2+
[2023-07-03] MEDS: HYDROCORTISONE SOD SUCCINATE 100 MG/2 ML VIAL IVPUSH SCH (21:02)
[2023-07-04 07:43] LABS: HEMATOCRIT 34.6 % (35.4-49); HEMOGLOBIN 11.9 GM/dL (11.7-16.9); MCHC 34.4 g/dl (32.0-35.9); MEAN PLT VOLUME 10.6 fl (7.5-11.1); PLATELET COUNT 198 10^3/uL (134-434); RBC 3.97 M/mm3 (4.00-5.60); RDW 16.7 % (11.9-15.9)
[2023-07-04 08:07] LABS: POTASSIUM 3.3 mmol/L (3.5-5.1)
[2023-07-04 08:22] LABS: CALCIUM 7.1 mg/dL (8.5-10.1)
[2023-07-04 08:23] LABS: ALBUMIN 1.3 g/dl (3.4-5.0)
[2023-07-04 08:26] LABS: CREATININE 1.6 mg/dL (0.55-1.3); PHOSPHOROUS 4.3 mg/dL (2.5-4.9)
[2023-07-04 08:28] LABS: TOT PROT 4.7 g/dl (6.4-8.2)
[2023-07-04 08:41] LABS: ANISOCYTOSIS 0; MACROCYTOSIS 0
[2023-07-04 08:45] LABS: WHITE BLOOD COUNT 15.6 K/mm3 (4.0-10.0)
[2023-07-04 08:46] LABS: CORRECTED WBC 11.47 K/mm3
[2023-07-04] MEDS ORDERED: INSULIN (NOVOLOG) ASPART 100 UNITS/ML 10ML VIAL ONE (10:22)
[2023-07-04] MEDS: POTASSIUM CHLORIDE ORAL LIQUID 20 MEQ/15 ML PO ONE (10:23)
[2023-07-05 06:51] LABS: HEMATOCRIT 33.3 % (35.4-49); HEMOGLOBIN 11.3 GM/dL (11.7-16.9); MCH 29.9 pg (25.7-33.7); MCHC 33.8 g/dl (32.0-35.9); MEAN CELL VOLUME 88.5 fl (80-96); MEAN PLT VOLUME 10.4 fl (7.5-11.1); PLATELET COUNT 188 10^3/uL (134-434); RBC 3.77 M/mm3 (4.00-5.60); RDW 16.9 % (11.9-15.9)
[2023-07-05 06:59] LABS: POTASSIUM 3.4 mmol/L (3.5-5.1)
[2023-07-05 07:02] LABS: WHITE BLOOD COUNT 12.3 K/mm3 (4.0-10.0)
[2023-07-05 07:04] LABS: ALBUMIN 1.2 g/dl (3.4-5.0); BLOOD UREA NITROGEN 80.2 mg/dL (7-18); MAGNESIUM 1.6 mg/dL (1.8-2.4)
[2023-07-05 07:07] LABS: CREATININE 1.9 mg/dL (0.55-1.3)
[2023-07-05 07:08] LABS: BILIRUBIN,TOTAL 0.9 mg/dL (0.2-1); TOT PROT 4.6 g/dl (6.4-8.2)
[2023-07-05] MEDS ORDERED: SODIUM CHLORIDE 250 ML IV PRN (08:01)
[2023-07-05 09:50] LABS: ANISOCYTOSIS 1+; CORRECTED WBC 10.25 K/mm3; MACROCYTOSIS 0; TARGET CELLS 1+
[2023-07-05] MEDS: MAGNESIUM SULF 50% (8.12 MEQ/2 ML-1 GM VIAL) IVPB ONE (11:01)
[2023-07-05] MEDS: MIDODRINE HCL 5 MG TABLET NGT SCH (14:47)
[2023-07-05] MEDS: DAPTOMYCIN 200 MG in SODIUM CHLORIDE 50 ML IVPB ONE (20:59)
[2023-07-06 06:34] LABS: BASO % 0.1 % (0-2.0); EOS % 1.8 % (0-4.5); HEMATOCRIT 34.7 % (35.4-49); HEMOGLOBIN 11.6 GM/dL (11.7-16.9); LYMPH % 3.4 % (8-40); MCH 30.2 pg (25.7-33.7); MCHC 33.5 g/dl (32.0-35.9); MEAN CELL VOLUME 90.1 fl (80-96); MEAN PLT VOLUME 9.5 fl (7.5-11.1); MONO % 1.8 % (3.8-10.2); NEUT % 92.9 % (42.8-82.8); PLATELET COUNT 151 10^3/uL (134-434); RBC 3.85 M/mm3 (4.00-5.60); RDW 17.7 % (11.9-15.9); WHITE BLOOD COUNT 8.1 K/mm3 (4.0-10.0)
[2023-07-06 06:50] LABS: POTASSIUM 3.3 mmol/L (3.5-5.1)
[2023-07-06 06:54] LABS: CALCIUM 7.4 mg/dL (8.5-10.1)
[2023-07-06 06:55] LABS: MAGNESIUM 1.7 mg/dL (1.8-2.4)
[2023-07-06 06:58] LABS: ALBUMIN 1.1 g/dl (3.4-5.0); CREATININE 1.5 mg/dL (0.55-1.3); PHOSPHOROUS 2.9 mg/dL (2.5-4.9)
[2023-07-06 06:59] LABS: TOT PROT 4.6 g/dl (6.4-8.2)
[2023-07-06 07:00] LABS: BILIRUBIN,TOTAL 1.1 mg/dL (0.2-1)
[2023-07-06 09:34] LABS: ANISOCYTOSIS 0; CORRECTED WBC 5.26 K/mm3; MACROCYTOSIS 0; TARGET CELLS 1+
[2023-07-06] MEDS: MAGNESIUM 1GM/D5W - 1 GM/100 ML IVPB IVPB ONE (10:34)
[2023-07-06] MEDS: MAGNESIUM OXIDE 400 MG TABLET (FP) PO ONE (10:34)
[2023-07-06] MEDS: FUROSEMIDE 40 MG/4 ML INJECTABLE VIAL IVPUSH ONE (12:40)
[2023-07-06] MEDS: MIDODRINE HCL 5 MG TABLET NGT SCH (14:52)
[2023-07-07 06:37] LABS: HEMATOCRIT 31.3 % (35.4-49); HEMOGLOBIN 10.6 GM/dL (11.7-16.9); MCH 30.5 pg (25.7-33.7); MCHC 33.9 g/dl (32.0-35.9); MEAN CELL VOLUME 89.8 fl (80-96); MEAN PLT VOLUME 9.6 fl (7.5-11.1); PLATELET COUNT 123 10^3/uL (134-434); RBC 3.48 M/mm3 (4.00-5.60); RDW 17.3 % (11.9-15.9)
[2023-07-07 06:39] LABS: WHITE BLOOD COUNT 7.9 K/mm3 (4.0-10.0)
[2023-07-07 07:03] LABS: POTASSIUM 3.4 mmol/L (3.5-5.1)
[2023-07-07 07:11] LABS: MAGNESIUM 1.8 mg/dL (1.8-2.4); PHOSPHOROUS 3.9 mg/dL (2.5-4.9)
[2023-07-07 07:12] LABS: BILIRUBIN,TOTAL 1.2 mg/dL (0.2-1); TOT PROT 4.4 g/dl (6.4-8.2)
[2023-07-07 07:14] LABS: CREATININE 1.8 mg/dL (0.55-1.3)
[2023-07-07 09:52] LABS: ANISOCYTOSIS 0; CORRECTED WBC 6.08 K/mm3; MACROCYTOSIS 0; TARGET CELLS 1+
[2023-07-07] MEDS ORDERED: FUROSEMIDE 40 MG/4 ML INJECTABLE VIAL IVPUSH SCH (10:00)
[2023-07-07] MEDS ORDERED: SODIUM CHLORIDE 250 ML IV PRN (10:58)
[2023-07-07] MEDS: ALBUMIN HUMAN 25% 12.5 GM/50 ML VIAL IV SCH (13:00)
[2023-07-07] MEDS: SODIUM CHLORIDE IVPB ONE (16:03)
[2023-07-07] MEDS: DAPTOMYCIN IVPB ONE (16:03)
[2023-07-07] MEDS ORDERED: INSULIN (NOVOLOG) ASPART 100 UNITS/ML 10ML VIAL ONE (17:08)
[2023-07-07] MEDS ORDERED: VASopressin 20 UNITS/ML VIAL IV ONE (17:10)
[2023-07-08 07:08] LABS: HEMATOCRIT 30.9 % (35.4-49); HEMOGLOBIN 10.4 GM/dL (11.7-16.9); INR 1.38 (0.83-1.09); MCH 30.1 pg (25.7-33.7); MCHC 33.7 g/dl (32.0-35.9); MEAN CELL VOLUME 89.2 fl (80-96); MEAN PLT VOLUME 10.1 fl (7.5-11.1); PLATELET COUNT 113 10^3/uL (134-434); PROTHROMBIN TIME (PATIENT) 15.9 SEC (9.7-13.0); RBC 3.47 M/mm3 (4.00-5.60); RDW 17.1 % (11.9-15.9)
[2023-07-08 07:13] LABS: CHLORIDE 98 mmol/L (98-107); POTASSIUM 3.5 mmol/L (3.5-5.1); SODIUM 133 mmol/L (136-145)
[2023-07-08 07:17] LABS: ANION GAP 11 mmol/L (4-13); CO2 24 mmol/L (21-32); GLUCOSE,RANDOM 177 mg/dL (74-106); MAGNESIUM 2.1 mg/dL (1.8-2.4)
[2023-07-08 07:20] LABS: CREATININE 2.1 mg/dL (0.55-1.3); PHOSPHOROUS 4.6 mg/dL (2.5-4.9); SGOT/AST 66 U/L (15-37); SGPT/ALT 62 U/L (13-61)
[2023-07-08 07:21] LABS: BILIRUBIN,TOTAL 1.8 mg/dL (0.2-1)
[2023-07-08 07:22] LABS: TOT PROT 4.5 g/dl (6.4-8.2)
[2023-07-08 07:28] LABS: WHITE BLOOD COUNT 8.4 K/mm3 (4.0-10.0)
[2023-07-08 07:34] LABS: ALBUMIN 1.3 g/dl (3.4-5.0); ALK PHOS 388 U/L (45-117); CALCIUM 6.8 mg/dL (8.5-10.1)
[2023-07-08] MEDS ORDERED: VASopressin 20 UNITS/ML VIAL IV ONE (13:02)
[2023-07-08] MEDS ORDERED: LIDOCAINE HCL 1%, 10 MG/ML (20ML VIAL) ONE (14:30)
[2023-07-08] MEDS ORDERED: DAPTOMYCIN IVPB SCH (18:00)
[2023-07-08] MEDS ORDERED: SODIUM CHLORIDE IVPB SCH (18:00)
[2023-07-09 06:50] LABS: HEMATOCRIT 30.8 % (35.4-49); HEMOGLOBIN 10.2 GM/dL (11.7-16.9); MCH 29.8 pg (25.7-33.7); MEAN CELL VOLUME 90.4 fl (80-96); MEAN PLT VOLUME 9.1 fl (7.5-11.1); PLATELET COUNT 107 10^3/uL (134-434); RBC 3.41 M/mm3 (4.00-5.60); RDW 17.2 % (11.9-15.9); WHITE BLOOD COUNT 9.7 K/mm3 (4.0-10.0)
[2023-07-09 07:30] LABS: POTASSIUM 3.6 mmol/L (3.5-5.1)
[2023-07-09 07:32] LABS: CALCIUM 7.2 mg/dL (8.5-10.1)
[2023-07-09 07:33] LABS: ALBUMIN 1.2 g/dl (3.4-5.0)
[2023-07-09 07:36] LABS: CREATININE 2.2 mg/dL (0.55-1.3); PHOSPHOROUS 4.7 mg/dL (2.5-4.9)
[2023-07-09 07:37] LABS: BILIRUBIN,TOTAL 1.3 mg/dL (0.2-1); TOT PROT 4.6 g/dl (6.4-8.2)
[2023-07-09] MEDS ORDERED: SODIUM CHLORIDE 250 ML IV PRN (08:28)
[2023-07-09 09:36] LABS: CORRECTED WBC 8.74 K/mm3
[2023-07-09] MEDS: DAPTOMYCIN IVPB ONE (22:36)
[2023-07-09] MEDS: SODIUM CHLORIDE IVPB ONE (22:36)
[2023-07-10] MEDS ORDERED: DEXTROSE 50%-WATER 25 GM/50 ML DISP.SYRIN ONE ×2 (05:53→08:01)
[2023-07-10 07:06] LABS: BASO % 0.4 % (0-2.0); EOS % 1.2 % (0-4.5); HEMATOCRIT 27.9 % (35.4-49); HEMOGLOBIN 9.4 GM/dL (11.7-16.9); LYMPH % 6.1 % (8-40); MCH 30.1 pg (25.7-33.7); MCHC 33.6 g/dl (32.0-35.9); MEAN CELL VOLUME 89.7 fl (80-96); MEAN PLT VOLUME 9.4 fl (7.5-11.1); MONO % 3.7 % (3.8-10.2); NEUT % 88.6 % (42.8-82.8); PLATELET COUNT 92 10^3/uL (134-434); RBC 3.11 M/mm3 (4.00-5.60); RDW 16.9 % (11.9-15.9); WHITE BLOOD COUNT 13.1 K/mm3 (4.0-10.0)
[2023-07-10] MEDS: DEXTROSE 50%-WATER - 25 GM/50 ML VIAL IVPUSH PRN (07:25)
[2023-07-10 07:27] LABS: CHLORIDE 101 mmol/L (98-107); POTASSIUM 3.3 mmol/L (3.5-5.1); SODIUM 136 mmol/L (136-145)
[2023-07-10 07:32] LABS: ALBUMIN 1.2 g/dl (3.4-5.0)
[2023-07-10 07:33] LABS: ANION GAP 10 mmol/L (4-13); BLOOD UREA NITROGEN 64.3 mg/dL (7-18); CO2 25 mmol/L (21-32); MAGNESIUM 1.9 mg/dL (1.8-2.4)
[2023-07-10 07:36] LABS: CREATININE 1.8 mg/dL (0.55-1.3); PHOSPHOROUS 3.6 mg/dL (2.5-4.9); SGOT/AST 68 U/L (15-37); SGPT/ALT 59 U/L (13-61)
[2023-07-10 07:37] LABS: BILIRUBIN,TOTAL 1.6 mg/dL (0.2-1); TOT PROT 4.7 g/dl (6.4-8.2)
[2023-07-10 07:39] LABS: ALK PHOS 507 U/L (45-117); GLUCOSE,RANDOM 39 mg/dL (74-106)
[2023-07-10] MEDS ORDERED: DEXTROSE 50%-WATER - 25 GM/50 ML VIAL IVPUSH ONE (09:15)
[2023-07-10] MEDS: DEXTROSE 50%-WATER 25 GM/50 ML DISP.SYRIN IVPUSH ONE (09:17)
[2023-07-10] MEDS ORDERED: VASopressin 20 UNITS/ML VIAL IV ONE (10:13)
[2023-07-10] MEDS ORDERED: MIDAZOLAM HCL 2 MG/2 ML SINGLE DOSE VIAL ONE (10:31)
[2023-07-10] MEDS: LIDOCAINE HCL 1%, 10 MG/ML (20ML VIAL) INF ONE (10:36)
[2023-07-11 06:35] LABS: BASO % 0.4 % (0-2.0); HEMATOCRIT 24.6 % (35.4-49); LYMPH % 7.6 % (8-40); MCH 29.7 pg (25.7-33.7); MCHC 32.6 g/dl (32.0-35.9); MEAN CELL VOLUME 90.9 fl (80-96); MEAN PLT VOLUME 9.8 fl (7.5-11.1); PLATELET COUNT 72 10^3/uL (134-434); RBC 2.71 M/mm3 (4.00-5.60); RDW 17.1 % (11.9-15.9); WHITE BLOOD COUNT 10.9 K/mm3 (4.0-10.0)
[2023-07-11] MEDS ORDERED: SODIUM CHLORIDE 250 ML IV PRN (06:47)
[2023-07-11 06:53] LABS: POTASSIUM 3.3 mmol/L (3.5-5.1)
[2023-07-11 06:55] LABS: CALCIUM 7.1 mg/dL (8.5-10.1)
[2023-07-11 06:56] LABS: ALBUMIN 1.1 g/dl (3.4-5.0); BLOOD UREA NITROGEN 70.9 mg/dL (7-18); MAGNESIUM 1.9 mg/dL (1.8-2.4)
[2023-07-11 06:59] LABS: PHOSPHOROUS 4.1 mg/dL (2.5-4.9)
[2023-07-11 07:00] LABS: BILIRUBIN,TOTAL 1.1 mg/dL (0.2-1); TOT PROT 4.4 g/dl (6.4-8.2)
[2023-07-11] MEDS: EPOETIN ALFA-EPBX 4,000 UNIT/ML VIAL SQ ONE (10:18)
[2023-07-11] MEDS: HEPARIN NA (PORCINE) 5,000 UNITS/ML 1ML VIAL SQ SCH (13:49)
[2023-07-11] MEDS: POTASSIUM CHLORIDE ORAL LIQUID 20 MEQ/15 ML PO ONE (15:11)
[2023-07-12 07:19] LABS: BASO % 0.2 % (0-2.0); HEMATOCRIT 25.7 % (35.4-49); HEMOGLOBIN 8.4 GM/dL (11.7-16.9); LYMPH % 8.3 % (8-40); MCH 29.7 pg (25.7-33.7); MCHC 32.8 g/dl (32.0-35.9); MEAN CELL VOLUME 90.6 fl (80-96); MEAN PLT VOLUME 9.5 fl (7.5-11.1); MONO % 3.9 % (3.8-10.2); NEUT % 86.6 % (42.8-82.8); PLATELET COUNT 83 10^3/uL (134-434); RBC 2.84 M/mm3 (4.00-5.60); RDW 17.1 % (11.9-15.9); WHITE BLOOD COUNT 11.4 K/mm3 (4.0-10.0)
[2023-07-12 07:27] LABS: POTASSIUM 3.4 mmol/L (3.5-5.1)
[2023-07-12 07:29] LABS: ALBUMIN 1.1 g/dl (3.4-5.0); CALCIUM 7.5 mg/dL (8.5-10.1); MAGNESIUM 1.5 mg/dL (1.8-2.4)
[2023-07-12 07:33] LABS: CREATININE 1.4 mg/dL (0.55-1.3); PHOSPHOROUS 2.1 mg/dL (2.5-4.9)
[2023-07-12 07:35] LABS: TOT PROT 4.8 g/dl (6.4-8.2)
[2023-07-12 07:40] LABS: BLOOD UREA NITROGEN 43.1 mg/dL (7-18)
[2023-07-12] MEDS: MAGNESIUM 2GM/50ML STERILE WATER IVPB IVPB ONE (09:00)
[2023-07-12] MEDS: POTASSIUM CHLORIDE ORAL LIQUID 20 MEQ/15 ML NGT ONE (11:54)
[2023-07-12] MEDS ORDERED: INSULIN (NOVOLOG) ASPART 100 UNITS/ML 10ML VIAL ONE (17:12)
[2023-07-13 07:55] LABS: BASO % 0.3 % (0-2.0); EOS % 1.2 % (0-4.5); HEMATOCRIT 24.4 % (35.4-49); HEMOGLOBIN 8.1 GM/dL (11.7-16.9); LYMPH % 6.8 % (8-40); MCH 30.1 pg (25.7-33.7); MCHC 33.3 g/dl (32.0-35.9); MEAN CELL VOLUME 90.4 fl (80-96); MONO % 3.5 % (3.8-10.2); NEUT % 88.2 % (42.8-82.8); PLATELET COUNT 84 10^3/uL (134-434); RDW 17.4 % (11.9-15.9); WHITE BLOOD COUNT 10.1 K/mm3 (4.0-10.0)
[2023-07-13 08:04] LABS: POTASSIUM 3.9 mmol/L (3.5-5.1)
[2023-07-13 08:08] LABS: CALCIUM 7.3 mg/dL (8.5-10.1)
[2023-07-13 08:10] LABS: BLOOD UREA NITROGEN 52.9 mg/dL (7-18); MAGNESIUM 2.1 mg/dL (1.8-2.4)
[2023-07-13 08:12] LABS: CREATININE 1.7 mg/dL (0.55-1.3); PHOSPHOROUS 2.3 mg/dL (2.5-4.9)
[2023-07-14 07:27] LABS: BASO % 0.2 % (0-2.0); EOS % 1.1 % (0-4.5); HEMATOCRIT 24.8 % (35.4-49); HEMOGLOBIN 8.4 GM/dL (11.7-16.9); LYMPH % 7.4 % (8-40); MCH 30.3 pg (25.7-33.7); MCHC 33.8 g/dl (32.0-35.9); MEAN CELL VOLUME 89.4 fl (80-96); MONO % 3.6 % (3.8-10.2); NEUT % 87.7 % (42.8-82.8); PLATELET COUNT 93 10^3/uL (134-434); RBC 2.77 M/mm3 (4.00-5.60); RDW 17.3 % (11.9-15.9); WHITE BLOOD COUNT 10.5 K/mm3 (4.0-10.0)
[2023-07-14 07:42] LABS: POTASSIUM 3.9 mmol/L (3.5-5.1)
[2023-07-14 07:46] LABS: ALBUMIN 1.2 g/dl (3.4-5.0); BLOOD UREA NITROGEN 61.8 mg/dL (7-18); CALCIUM 7.8 mg/dL (8.5-10.1)
[2023-07-14 07:49] LABS: CREATININE 1.9 mg/dL (0.55-1.3); PHOSPHOROUS 2.7 mg/dL (2.5-4.9)
[2023-07-14 07:50] LABS: TOT PROT 5.1 g/dl (6.4-8.2)
[2023-07-14] MEDS: EPOETIN ALFA-EPBX 4,000 UNIT/ML VIAL IVPUSH ONE (09:40)
[2023-07-14] MEDS ORDERED: DEXTROSE 50%-WATER 25 GM/50 ML DISP.SYRIN ONE (17:14)
[2023-07-14] MEDS: DEXTROSE 50%-WATER - 25 GM/50 ML VIAL IVPUSH ONE (17:30)
[2023-07-14] MEDS: DEXTROSE 10%-WATER - 1,000 ML IV SCH (18:30)
[2023-07-14] MEDS ORDERED: VASopressin 20 UNITS/ML VIAL IV ONE (19:22)
[2023-07-15 07:17] LABS: BASO % 0.2 % (0-2.0); EOS % 0.9 % (0-4.5); HEMATOCRIT 25.3 % (35.4-49); HEMOGLOBIN 8.4 GM/dL (11.7-16.9); LYMPH % 10.6 % (8-40); MCH 29.8 pg (25.7-33.7); MCHC 33.3 g/dl (32.0-35.9); MEAN CELL VOLUME 89.7 fl (80-96); MONO % 3.8 % (3.8-10.2); NEUT % 84.5 % (42.8-82.8); PLATELET COUNT 84 10^3/uL (134-434); RBC 2.82 M/mm3 (4.00-5.60); RDW 17.1 % (11.9-15.9); WHITE BLOOD COUNT 9.6 K/mm3 (4.0-10.0)
[2023-07-15 07:29] LABS: POTASSIUM 3.7 mmol/L (3.5-5.1)
[2023-07-15 07:37] LABS: CALCIUM 7.7 mg/dL (8.5-10.1)
[2023-07-15 07:38] LABS: ALBUMIN 1.1 g/dl (3.4-5.0); MAGNESIUM 2.1 mg/dL (1.8-2.4)
[2023-07-15 07:41] LABS: CREATININE 1.2 mg/dL (0.55-1.3); PHOSPHOROUS 1.9 mg/dL (2.5-4.9)
[2023-07-15 07:42] LABS: BILIRUBIN,TOTAL 1.1 mg/dL (0.2-1)
[2023-07-15 07:49] LABS: BLOOD UREA NITROGEN 33.6 mg/dL (7-18)
[2023-07-15] MEDS ORDERED: GLUCAGON 1 MG KIT ONE ×2 (09:48→09:54)
[2023-07-15] MEDS: GLUCAGON 1 MG KIT IVPUSH ONE (10:29)
[2023-07-16] MEDS ORDERED: INSULIN (NOVOLOG) ASPART 100 UNITS/ML 10ML VIAL ONE (06:55)
[2023-07-16 07:23] LABS: BASO % 0.4 % (0-2.0); EOS % 1.1 % (0-4.5); HEMATOCRIT 25.2 % (35.4-49); HEMOGLOBIN 8.4 GM/dL (11.7-16.9); LYMPH % 10.1 % (8-40); MCH 30.1 pg (25.7-33.7); MCHC 33.2 g/dl (32.0-35.9); MEAN CELL VOLUME 90.8 fl (80-96); MEAN PLT VOLUME 10.1 fl (7.5-11.1); MONO % 4.1 % (3.8-10.2); NEUT % 84.3 % (42.8-82.8); PLATELET COUNT 79 10^3/uL (134-434); RBC 2.78 M/mm3 (4.00-5.60); RDW 17.1 % (11.9-15.9); WHITE BLOOD COUNT 8.4 K/mm3 (4.0-10.0)
[2023-07-16 07:42] LABS: POTASSIUM 3.9 mmol/L (3.5-5.1)
[2023-07-16 07:58] LABS: CALCIUM 8.3 mg/dL (8.5-10.1)
[2023-07-16 08:01] LABS: BLOOD UREA NITROGEN 42.6 mg/dL (7-18); CREATININE 1.4 mg/dL (0.55-1.3); PHOSPHOROUS 2.8 mg/dL (2.5-4.9)
[2023-07-16 08:02] LABS: BILIRUBIN,TOTAL 1.1 mg/dL (0.2-1); TOT PROT 4.7 g/dl (6.4-8.2)
[2023-07-16] MEDS ORDERED: SODIUM CHLORIDE 250 ML IV PRN (13:39)
[2023-07-16] MEDS: EPOETIN ALFA-EPBX 3,000 UNIT/ML VIAL SQ ONE (14:53)
[2023-07-16] MEDS ORDERED: DEXTROSE 50%-WATER - 25 GM/50 ML VIAL IVPUSH PRN (17:52)
[2023-07-16] MEDS ORDERED: LYTES/YERBA SANTA 60 ML SPRAY MM SCH (17:52)
[2023-07-16] MEDS: MIDODRINE HCL 5 MG TABLET NGT SCH (21:20)
[2023-07-16] MEDS: INSULIN (LEVEMIR) 100 UNITS/ML UNITS SQ SCH (21:21)
[2023-07-16] MEDS: HEPARIN NA (PORCINE) 5,000 UNITS/ML 1ML VIAL SQ SCH (21:21)
[2023-07-17] MEDS: INSULIN ASPART SLIDING SCALE (NOVOLOG) 1 VIAL SQ SCH (06:17)
[2023-07-17 06:37] VITALS: RESP 18
[2023-07-17] MEDS: AMINO ACIDS/PROTEIN HYDROLYS 30 ML LIQUID.PKT GT SCH (11:08)
[2023-07-17 18:59] LABS: HEMATOCRIT 25.7 % (35.4-49); HEMOGLOBIN 8.3 GM/dL (11.7-16.9); MCH 29.6 pg (25.7-33.7); MCHC 32.5 g/dl (32.0-35.9); PLATELET COUNT 88 10^3/uL (134-434); RBC 2.82 M/mm3 (4.00-5.60); RDW 17.2 % (11.9-15.9); WHITE BLOOD COUNT 11.1 K/mm3 (4.0-10.0)
[2023-07-17 19:17] LABS: POTASSIUM 3.7 mmol/L (3.5-5.1)
[2023-07-17 19:19] LABS: CALCIUM 7.6 mg/dL (8.5-10.1)
[2023-07-17 19:20] LABS: BLOOD UREA NITROGEN 20.6 mg/dL (7-18)
[2023-07-17 19:23] LABS: CREATININE 1.3 mg/dL (0.55-1.3)
[2023-07-17 19:25] LABS: BILIRUBIN,TOTAL 1.4 mg/dL (0.2-1); TOT PROT 5.2 g/dl (6.4-8.2)
[2023-07-17 19:27] LABS: ALBUMIN 1.4 g/dl (3.4-5.0)
[2023-07-17] MEDS: ACETAMINOPHEN 1000 MG/100 ML BAG IVPB PRN (21:43)
[2023-07-18] MEDS ORDERED: SODIUM CHLORIDE 250 ML IV PRN (12:48)
[2023-07-18] MEDS: EPOETIN ALFA-EPBX 4,000 UNIT/ML VIAL IVPUSH ONE (14:55)
[2023-07-18] MEDS: PNEUMOC 20-VAL CONJ-DIP CRM/PF 0.5 ML SYRINGE IM ONE (16:18)
[2023-07-18] MEDS: FLU VACCINE (FLULAVAL) PF 60 MCG/0.5 ML SYRINGE 2023-2024 IM ONE (16:20)
[2023-07-18 22:31] VITALS: BP 111/53; PULSE 115; TEMP 98.9
== END 2023-07-19 02:05 | DRG 314 ==
LOC: JER 10:56 → JERBED 15:07 → JICU 16:18 → J8W 07-16 17:51
PROVIDERS: ADMIT Family Medicine; ATTEND Family Medicine
PROC: 02HV33Z Insertion of Infusion Device into Superior Vena Cava, Percutaneous Approach (ICD-10-PCS; 2023-06-18)
PROC: 03HY32Z Insertion of Monitoring Device into Upper Artery, Percutaneous Approach (ICD-10-PCS; principal; 2023-06-19)
PROC: 4A133B1 Monitoring of Arterial Pressure, Peripheral, Percutaneous Approach (ICD-10-PCS; 2023-06-19)
PROC: 4A133J1 Monitoring of Arterial Pulse, Peripheral, Percutaneous Approach (ICD-10-PCS; 2023-06-19)
PROC: 05H433Z Insertion of Infusion Device into Left Innominate Vein, Percutaneous Approach (ICD-10-PCS; 2023-06-22)
PROC: B54NZZA Ultrasonography of Left Upper Extremity Veins, Guidance (ICD-10-PCS; 2023-06-22)
PROC: 5A1D70Z Performance of Urinary Filtration, Intermittent, Less than 6 Hours Per Day (ICD-10-PCS; 2023-06-22)
PROC: 02HV33Z Insertion of Infusion Device into Superior Vena Cava, Percutaneous Approach (ICD-10-PCS; 2023-06-27)
PROC: 05HF33Z Insertion of Infusion Device into Left Cephalic Vein, Percutaneous Approach (ICD-10-PCS; 2023-07-10)
PROC: B54NZZA Ultrasonography of Left Upper Extremity Veins, Guidance (ICD-10-PCS; 2023-07-10)
PROC: 02H633Z Insertion of Infusion Device into Right Atrium, Percutaneous Approach (ICD-10-PCS; 2023-07-10)
PROC: B548ZZA Ultrasonography of Superior Vena Cava, Guidance (ICD-10-PCS; 2023-07-10)
PROC: 0DH63UZ Insertion of Feeding Device into Stomach, Percutaneous Approach (ICD-10-PCS; 2023-07-15)
PROC: 3E0G76Z Introduction of Nutritional Substance into Upper GI, Via Natural or Artificial Opening (ICD-10-PCS; 2023-07-15)
DX: T80.211A Bloodstream infection due to central venous catheter, initial encounter (principal); A41.02 Sepsis due to Methicillin resistant Staphylococcus aureus; G92.8 Other toxic encephalopathy; R65.21 Severe sepsis with septic shock; R53.2 Functional quadriplegia; J18.9 Pneumonia, unspecified organism; J96.90 Respiratory failure, unspecified, unspecified whether with hypoxia or hypercapnia; N39.0 Urinary tract infection, site not specified; I24.89 Other forms of acute ischemic heart disease; E87.20 Acidosis, unspecified; J90 Pleural effusion, not elsewhere classified; J44.9 Chronic obstructive pulmonary disease, unspecified; L89.512 Pressure ulcer of right ankle, stage 2; L89.152 Pressure ulcer of sacral region, stage 2; N40.0 Benign prostatic hyperplasia without lower urinary tract symptoms; N31.9 Neuromuscular dysfunction of bladder, unspecified; D64.9 Anemia, unspecified; Z74.01 Bed confinement status; F03.90 Unspecified dementia, unspecified severity, without behavioral disturbance, psychotic disturbance, mood disturbance, and anxiety; D69.6 Thrombocytopenia, unspecified; Y83.8 Other surgical procedures as the cause of abnormal reaction of the patient, or of later complication, without mention of misadventure at the time of the procedure; R73.9 Hyperglycemia, unspecified; E16.2 Hypoglycemia, unspecified; E88.09 Other disorders of plasma-protein metabolism, not elsewhere classified; E87.6 Hypokalemia
CPT/HCPCS: 0241U-QW; 36415; 36430; 36600; 49440; 71045-TC-FY; 74018-TC-FY; 76000-TC-FY; 80048; 80053; 81003; 82272; 82550; 82803; 82962; 83605; 83735; 83880; 84100; 84484; 85025; 85027; 85610; 85730; 86140; 86705; 86803; 86850; 86900; 86901; 86922; 87040; 87070; 87077; 87086; 87186; 87205; 87340; 87635; 90677; 90686; 93005; 93010; 93306-TC; 97161-GP; 99291; 99292; C1750; E0186; G0008; G0009; G0480; J0131; J0878; J1644; J3490; P9047; P9058; Q5106

== ENCOUNTER 2023-07-20 15:42 | Inpatient (IN) | payer OTHER ==
[2023-07-20] MEDS ORDERED: DEXTROSE 50%-WATER 25 GM/50 ML DISP.SYRIN ONE ×2 (15:49→21:50)
[2023-07-20 16:16] LABS: VENOUS BASE EXCESS 1.5 mmol/L (-2-2); VENOUS O2 SATURATION 75.8 % (70-80); VENOUS PCO2 36.6 mmHg (38-52); VENOUS PH 7.46 (7.310-7.410)
[2023-07-20] MEDS: SODIUM CHLORIDE 1,000 ML IV ONE (16:20)
[2023-07-20 16:21] LABS: BASO % 0.2 % (0-2.0); EOS % 0.3 % (0-4.5); HEMATOCRIT 21.1 % (35.4-49); LYMPH % 10.8 % (8-40); MCH 28.9 pg (25.7-33.7); MCHC 31.5 g/dl (32.0-35.9); MEAN CELL VOLUME 91.7 fl (80-96); MEAN PLT VOLUME 9.6 fl (7.5-11.1); MONO % 5.3 % (3.8-10.2); NEUT % 83.4 % (42.8-82.8); PLATELET COUNT 63 10^3/uL (134-434); RBC 2.31 M/mm3 (4.00-5.60); RDW 17.1 % (11.9-15.9); WHITE BLOOD COUNT 17.8 K/mm3 (4.0-10.0)
[2023-07-20 16:23] LABS: HEMOGLOBIN 6.7 GM/dL (11.7-16.9)
[2023-07-20 16:26] LABS: INR 1.32 (0.83-1.09); PROTHROMBIN TIME (PATIENT) 15.3 SEC (9.7-13.0)
[2023-07-20 16:29] LABS: ACTIVATED PTT 35.4 SECONDS (25.2-36.5)
[2023-07-20 16:35] LABS: CHLORIDE 107 mmol/L (98-107); POTASSIUM 3.9 mmol/L (3.5-5.1); SODIUM 144 mmol/L (136-145)
[2023-07-20 16:38] LABS: CALCIUM 7.9 mg/dL (8.5-10.1)
[2023-07-20 16:39] LABS: ANION GAP 11 mmol/L (4-13); BLOOD UREA NITROGEN 34.4 mg/dL (7-18); CO2 26 mmol/L (21-32); GLUCOSE,RANDOM 167 mg/dL (74-106)
[2023-07-20 16:42] LABS: CREATININE 2.2 mg/dL (0.55-1.3); SGOT/AST 41 U/L (15-37); SGPT/ALT 18 U/L (13-61)
[2023-07-20 16:43] LABS: BILIRUBIN,TOTAL 0.8 mg/dL (0.2-1); TOT PROT 4.4 g/dl (6.4-8.2)
[2023-07-20] MEDS ORDERED: MEROPENEM 1 GM VIAL (RESTRICTED TO ID) IVPB ONE (16:45)
[2023-07-20 16:49] LABS: LACTIC ACID 7.2 mmol/L (0.4-2.0)
[2023-07-20] MEDS: DEXTROSE 50%-WATER - 25 GM/50 ML VIAL IVPUSH ONE ×2 (16:53→22:36)
[2023-07-20 17:32] LABS: ALK PHOS 326 U/L (45-117)
[2023-07-20] MEDS: MEROPENEM 1 GM in DEXTROSE 5%-WATER 100 ML IVPB ONE (17:38)
[2023-07-20] MEDS: VANCOMYCIN 1,000 MG in DEXTROSE 5%-WATER - 250 ML IVPB ONE (17:55)
[2023-07-20] MEDS: DAPTOMYCIN IVPB ONE (18:12)
[2023-07-20] MEDS: SODIUM CHLORIDE IVPB ONE (18:12)
[2023-07-20 18:54] LABS: LACTIC ACID 7.1 mmol/L (0.4-2.0)
[2023-07-20] MEDS: LACTATED RINGERS SOLUTION 1000 ML INFUS.BAG IV ONE (19:07)
[2023-07-20 21:22] LABS: URINE APPEARANCE Cloudy; URINE BILIRUBIN 2+ (NEGATIVE); URINE COLOR Dark yellow; URINE GLUCOSE (UA) Negative (NEGATIVE); URINE KETONE Trace (NEGATIVE); URINE LEUK ESTERASE 3+ (NEGATIVE); URINE NITRITE Positive (NEGATIVE); URINE PROTEIN 3+ (NEGATIVE); URINE UROBILINOGEN 0.2 mg/dL (0.2-1.0)
[2023-07-20 22:19] LABS: EPI CELLS FEW /uL (0-25.1); URINE BACTERIA MODERATE /uL (0-1359); YEAST MODERATE (NEGATIVE)
[2023-07-21] MEDS: DEXTROSE 50%-WATER - 25 GM/50 ML VIAL IVPUSH ONE (06:10)
[2023-07-21 07:38] LABS: HEMATOCRIT 32.4 % (35.4-49); HEMOGLOBIN 10.6 GM/dL (11.7-16.9); MCH 28.9 pg (25.7-33.7); MCHC 32.7 g/dl (32.0-35.9); MEAN CELL VOLUME 88.5 fl (80-96); MEAN PLT VOLUME 9.8 fl (7.5-11.1); PLATELET COUNT 52 10^3/uL (134-434); RBC 3.66 M/mm3 (4.00-5.60); WHITE BLOOD COUNT 19.3 K/mm3 (4.0-10.0)
[2023-07-21 07:56] LABS: POTASSIUM 3.9 mmol/L (3.5-5.1)
[2023-07-21 07:57] LABS: CALCIUM 8.1 mg/dL (8.5-10.1); MAGNESIUM 1.6 mg/dL (1.8-2.4)
[2023-07-21 07:58] LABS: BLOOD UREA NITROGEN 38.6 mg/dL (7-18)
[2023-07-21 08:01] LABS: CREATININE 2.1 mg/dL (0.55-1.3); PHOSPHOROUS 2.3 mg/dL (2.5-4.9)
[2023-07-21] MEDS: MAGNESIUM SULF 50% (8.12 MEQ/2 ML-1 GM VIAL) IVPB ONE (10:48)
[2023-07-21] MEDS: NAPH,MB-DB/K PH,MBDB POWDER PACKET PO ONE (10:48)
[2023-07-21 11:52] LABS: LACTIC ACID 4.9 mmol/L (0.4-2.0)
[2023-07-21] MEDS: MEROPENEM 1 GM in DEXTROSE 5%-WATER 100 ML IVPB SCH (12:21)
[2023-07-21] MEDS: INSULIN ASPART SLIDING SCALE (NOVOLOG) 1 VIAL SQ SCH (18:13)
[2023-07-21] MEDS: MIDODRINE HCL 5 MG TABLET GT SCH (18:14)
[2023-07-22 07:27] LABS: HEMATOCRIT 30.3 % (35.4-49); HEMOGLOBIN 10.2 GM/dL (11.7-16.9); MCH 29.2 pg (25.7-33.7); MCHC 33.6 g/dl (32.0-35.9); MEAN CELL VOLUME 86.9 fl (80-96); MEAN PLT VOLUME 10.3 fl (7.5-11.1); PLATELET COUNT 56 10^3/uL (134-434); RBC 3.48 M/mm3 (4.00-5.60); RDW 17.2 % (11.9-15.9); WHITE BLOOD COUNT 17.6 K/mm3 (4.0-10.0)
[2023-07-22] MEDS ORDERED: SODIUM CHLORIDE 250 ML IV PRN (07:33)
[2023-07-22 08:06] LABS: POTASSIUM 4.1 mmol/L (3.5-5.1)
[2023-07-22 08:08] LABS: CALCIUM 8.1 mg/dL (8.5-10.1)
[2023-07-22 08:09] LABS: BLOOD UREA NITROGEN 45.6 mg/dL (7-18); MAGNESIUM 1.8 mg/dL (1.8-2.4)
[2023-07-22 08:12] LABS: CREATININE 2.5 mg/dL (0.55-1.3); PHOSPHOROUS 2.3 mg/dL (2.5-4.9)
[2023-07-22 08:13] LABS: TOT PROT 4.6 g/dl (6.4-8.2)
[2023-07-22] MEDS: EPOETIN ALFA-EPBX 4,000 UNIT/ML VIAL IVPUSH ONE (09:13)
[2023-07-22 11:15] LABS: LACTIC ACID 3.1 mmol/L (0.4-2.0)
[2023-07-22] MEDS: NAPH,MB-DB/K PH,MBDB POWDER PACKET PO ONE (11:32)
[2023-07-22] MEDS: PANTOPRAZOLE SODIUM 40 MG VIAL IVPUSH SCH (11:32)
[2023-07-22] MEDS: AMINO ACIDS/PROTEIN HYDROLYS 30 ML LIQUID.PKT PO SCH (17:00)
[2023-07-22] MEDS ORDERED: INSULIN (NOVOLOG) ASPART 100 UNITS/ML 10ML VIAL ONE (17:05)
[2023-07-23] MEDS ORDERED: INSULIN (NOVOLOG) ASPART 100 UNITS/ML 10ML VIAL ONE (16:50)
[2023-07-24] MEDS ORDERED: INSULIN (NOVOLOG) ASPART 100 UNITS/ML 10ML VIAL ONE (05:52)
[2023-07-24] MEDS ORDERED: SODIUM CHLORIDE 250 ML IV PRN (08:02)
[2023-07-24] MEDS: ALBUMIN HUMAN 25% 12.5 GM/50 ML VIAL IV SCH (09:00)
[2023-07-24] MEDS: EPOETIN ALFA-EPBX 4,000 UNIT/ML VIAL IVPUSH ONE (10:14)
[2023-07-24 12:54] VITALS: BMI 23.7
[2023-07-24] MEDS: DAPTOMYCIN 500 MG in SODIUM CHLORIDE 50 ML IVPB SCH (19:00)
[2023-07-26 07:23] LABS: HEMOGLOBIN 9.5 GM/dL (11.7-16.9); MCH 29.1 pg (25.7-33.7); MCHC 32.8 g/dl (32.0-35.9); MEAN CELL VOLUME 88.6 fl (80-96); MEAN PLT VOLUME 11.7 fl (7.5-11.1); PLATELET COUNT 66 10^3/uL (134-434); RBC 3.27 M/mm3 (4.00-5.60); RDW 16.8 % (11.9-15.9); WHITE BLOOD COUNT 25.2 K/mm3 (4.0-10.0)
[2023-07-26] MEDS ORDERED: ACETAMINOPHEN 1000 MG/100 ML BAG IVPB PRN (07:28)
[2023-07-26] MEDS ORDERED: SODIUM CHLORIDE 250 ML IV PRN (09:00)
[2023-07-26] MEDS: EPOETIN ALFA-EPBX 4,000 UNIT/ML VIAL IVPUSH ONE (09:25)
[2023-07-26 09:29] LABS: ANISOCYTOSIS 0; MACROCYTOSIS 0
[2023-07-26] MEDS: ALBUMIN HUMAN 25% 12.5 GM/50 ML VIAL IV SCH (10:49)
[2023-07-27 06:51] LABS: ARTERIAL BLD GAS O2 SATURATION 86.1 % (95-98); ARTERIAL BLOOD GAS BASE EXCESS 7.2 mmol/L (-2-2); ARTERIAL BLOOD GAS PO2 45.4 mmHg (80-100); ARTERIAL BLOOD GAS pH 7.522 (7.350-7.450)
[2023-07-27 07:09] LABS: ALLENS TEST POSITIVE
[2023-07-27 08:03] LABS: HEMATOCRIT 28.2 % (35.4-49); HEMOGLOBIN 9.2 GM/dL (11.7-16.9); MCH 28.7 pg (25.7-33.7); MCHC 32.6 g/dl (32.0-35.9); MEAN PLT VOLUME 11.3 fl (7.5-11.1); PLATELET COUNT 60 10^3/uL (134-434); RDW 16.7 % (11.9-15.9); WHITE BLOOD COUNT 22.1 K/mm3 (4.0-10.0)
[2023-07-27 08:34] LABS: POTASSIUM 3.2 mmol/L (3.5-5.1)
[2023-07-27 08:41] LABS: BLOOD UREA NITROGEN 33.5 mg/dL (7-18); CALCIUM 8.5 mg/dL (8.5-10.1); MAGNESIUM 1.7 mg/dL (1.8-2.4)
[2023-07-27 08:42] LABS: INR 1.24 (0.83-1.09); PROTHROMBIN TIME (PATIENT) 14.4 SEC (9.7-13.0)
[2023-07-27 08:44] LABS: CREATININE 1.6 mg/dL (0.55-1.3); PHOSPHOROUS 1.4 mg/dL (2.5-4.9)
[2023-07-27 08:46] LABS: BILIRUBIN,TOTAL 2.4 mg/dL (0.2-1); TOT PROT 5.6 g/dl (6.4-8.2)
[2023-07-27 08:58] LABS: ALBUMIN 1.4 g/dl (3.4-5.0)
[2023-07-27] MEDS: MAGNESIUM OXIDE 400 MG TABLET (FP) PEG ONE (09:20)
[2023-07-27] MEDS: POTASSIUM CHLORIDE ORAL LIQUID 20 MEQ/15 ML PEG ONE (09:30)
[2023-07-27 10:15] LABS: ANISOCYTOSIS 0; CORRECTED WBC 19.05 K/mm3; MACROCYTOSIS 0; TARGET CELLS 3+
[2023-07-27] MEDS: MEROPENEM 1 GM in DEXTROSE 5%-WATER 100 ML IVPB SCH (10:22)
[2023-07-27] MEDS: NAPH,MB-DB/K PH,MBDB POWDER PACKET PO ONE (16:00)
[2023-07-27] MEDS ORDERED: INSULIN (NOVOLOG) ASPART 100 UNITS/ML 10ML VIAL ONE (21:20)
[2023-07-27] MEDS ORDERED: ACETAMINOPHEN 650 MG/20.3 ML ORAL SOLUTION (CUPS) GT PRN (23:48)
[2023-07-28] MEDS: ACETAMINOPHEN 650 MG/20.3 ML ORAL SOLUTION (CUPS) GT ONE (01:11)
[2023-07-28 07:38] LABS: HEMATOCRIT 25.1 % (35.4-49); HEMOGLOBIN 8.3 GM/dL (11.7-16.9); MCH 29.4 pg (25.7-33.7); MCHC 33.2 g/dl (32.0-35.9); MEAN CELL VOLUME 88.4 fl (80-96); MEAN PLT VOLUME 11.9 fl (7.5-11.1); PLATELET COUNT 67 10^3/uL (134-434); RBC 2.84 M/mm3 (4.00-5.60); RDW 16.7 % (11.9-15.9); WHITE BLOOD COUNT 20.9 K/mm3 (4.0-10.0)
[2023-07-28 07:46] LABS: POTASSIUM 3.7 mmol/L (3.5-5.1)
[2023-07-28 07:49] LABS: CALCIUM 8.2 mg/dL (8.5-10.1)
[2023-07-28 07:50] LABS: ALBUMIN 1.2 g/dl (3.4-5.0); BLOOD UREA NITROGEN 50.1 mg/dL (7-18); MAGNESIUM 1.8 mg/dL (1.8-2.4)
[2023-07-28 07:53] LABS: CREATININE 2.1 mg/dL (0.55-1.3)
[2023-07-28 07:54] LABS: TOT PROT 5.1 g/dl (6.4-8.2)
[2023-07-28 07:55] LABS: BILIRUBIN,TOTAL 2.4 mg/dL (0.2-1)
[2023-07-28 12:48] LABS: ANISOCYTOSIS 0; CORRECTED WBC 14.93 K/mm3; MACROCYTOSIS 0; TARGET CELLS 3+
[2023-07-28] MEDS: SODIUM CHLORIDE 0.9% 500 ML INFUS.BAG IV ONE (17:42)
[2023-07-28] MEDS: EPOETIN ALFA-EPBX 10,000 UNIT/ML VIAL SQ ONE (21:33)
[2023-07-29] MEDS ORDERED: SODIUM CHLORIDE 250 ML IV PRN (07:00)
[2023-07-29 07:35] LABS: HEMATOCRIT 26.3 % (35.4-49); HEMOGLOBIN 8.8 GM/dL (11.7-16.9); MCH 29.4 pg (25.7-33.7); MCHC 33.2 g/dl (32.0-35.9); MEAN CELL VOLUME 88.5 fl (80-96); MEAN PLT VOLUME 11.8 fl (7.5-11.1); PLATELET COUNT 68 10^3/uL (134-434); RBC 2.98 M/mm3 (4.00-5.60); RDW 17.3 % (11.9-15.9)
[2023-07-29 07:36] LABS: WHITE BLOOD COUNT 23.9 K/mm3 (4.0-10.0)
[2023-07-29 07:59] LABS: POTASSIUM 4.1 mmol/L (3.5-5.1)
[2023-07-29 08:04] LABS: ALBUMIN 1.3 g/dl (3.4-5.0); CALCIUM 8.7 mg/dL (8.5-10.1); MAGNESIUM 2.2 mg/dL (1.8-2.4)
[2023-07-29 08:07] LABS: CREATININE 2.5 mg/dL (0.55-1.3)
[2023-07-29 08:09] LABS: BILIRUBIN,TOTAL 1.7 mg/dL (0.2-1); TOT PROT 5.8 g/dl (6.4-8.2)
[2023-07-29] MEDS: EPOETIN ALFA-EPBX 10,000 UNIT/ML VIAL IVPUSH ONE (08:47)
[2023-07-29 09:20] LABS: ANISOCYTOSIS 1+; CORRECTED WBC 16.26 K/mm3; MACROCYTOSIS 0; TARGET CELLS 2+
[2023-07-29] MEDS: VITAMIN B COMP W-C 1 EA TABLET (NEPHRO-VITE) GT SCH (09:31)
[2023-07-30 07:25] LABS: HEMATOCRIT 24.2 % (35.4-49); HEMOGLOBIN 7.9 GM/dL (11.7-16.9); MCH 29.2 pg (25.7-33.7); MCHC 32.6 g/dl (32.0-35.9); MEAN CELL VOLUME 89.5 fl (80-96); MEAN PLT VOLUME 12.2 fl (7.5-11.1); PLATELET COUNT 78 10^3/uL (134-434); RDW 16.7 % (11.9-15.9)
[2023-07-30 07:31] LABS: WHITE BLOOD COUNT 25.2 K/mm3 (4.0-10.0)
[2023-07-30 07:43] LABS: POTASSIUM 3.7 mmol/L (3.5-5.1)
[2023-07-30 07:55] LABS: CALCIUM 8.5 mg/dL (8.5-10.1)
[2023-07-30 07:56] LABS: ALBUMIN 1.5 g/dl (3.4-5.0); MAGNESIUM 1.9 mg/dL (1.8-2.4)
[2023-07-30 08:00] LABS: CREATININE 1.8 mg/dL (0.55-1.3)
[2023-07-30 08:01] LABS: TOT PROT 5.8 g/dl (6.4-8.2)
[2023-07-30 08:02] LABS: BILIRUBIN,TOTAL 1.6 mg/dL (0.2-1)
[2023-07-30 08:05] LABS: BLOOD UREA NITROGEN 33.2 mg/dL (7-18)
[2023-07-30 10:03] LABS: ANISOCYTOSIS 1+; CORRECTED WBC 20.83 K/mm3; MACROCYTOSIS 0
[2023-07-31] MEDS ORDERED: SODIUM CHLORIDE 250 ML IV PRN (08:43)
[2023-07-31] MEDS: EPOETIN ALFA-EPBX 10,000 UNIT/ML VIAL IVPUSH ONE (10:49)
[2023-07-31] MEDS: MIDODRINE HCL 5 MG TABLET GT SCH (13:34)
[2023-08-01] MEDS ORDERED: INSULIN (NOVOLOG) ASPART 100 UNITS/ML 10ML VIAL ONE (11:42)
[2023-08-01] MEDS: ACETAMINOPHEN 1000 MG/100 ML BAG IVPB PRN (12:00)
[2023-08-01] MEDS ORDERED: SODIUM CHLORIDE 250 ML IV PRN (15:42)
[2023-08-02] MEDS ORDERED: EPOETIN ALFA-EPBX 10,000 UNIT/ML VIAL IVPUSH ONE (00:01)
[2023-08-02 08:58] LABS: MCH 29.7 pg (25.7-33.7); MCHC 32.8 g/dl (32.0-35.9); MEAN CELL VOLUME 90.8 fl (80-96); MEAN PLT VOLUME 11.4 fl (7.5-11.1); PLATELET COUNT 91 10^3/uL (134-434); RBC 2.21 M/mm3 (4.00-5.60); RDW 18.7 % (11.9-15.9)
[2023-08-02 09:04] LABS: HEMOGLOBIN 6.6 GM/dL (11.7-16.9)
[2023-08-02 09:06] LABS: WHITE BLOOD COUNT 24.6 K/mm3 (4.0-10.0)
[2023-08-02] MEDS: EPOETIN ALFA-EPBX 10,000 UNIT/ML VIAL IVPUSH ONE (11:13)
[2023-08-02] MEDS: PANTOPRAZOLE SODIUM 40 MG VIAL IVPUSH SCH (12:58)
[2023-08-02] MEDS: INSULIN ASPART SLIDING SCALE (NOVOLOG) 1 VIAL SQ SCH (13:56)
[2023-08-02 14:54] LABS: HEMATOCRIT 20.2 % (35.4-49); MCH 29.5 pg (25.7-33.7); MCHC 32.3 g/dl (32.0-35.9); MEAN CELL VOLUME 91.4 fl (80-96); MEAN PLT VOLUME 11.6 fl (7.5-11.1); PLATELET COUNT 87 10^3/uL (134-434); RBC 2.21 M/mm3 (4.00-5.60); RDW 18.6 % (11.9-15.9); WHITE BLOOD COUNT 21.8 K/mm3 (4.0-10.0)
[2023-08-02 14:57] LABS: HEMOGLOBIN 6.5 GM/dL (11.7-16.9)
[2023-08-02] MEDS: ACETAMINOPHEN 650 MG/20.3 ML ORAL SOLUTION (CUPS) PO PRN (21:44)
[2023-08-03] MEDS ORDERED: INSULIN (NOVOLOG) ASPART 100 UNITS/ML 10ML VIAL ONE ×2 (07:20→07:54)
[2023-08-03 09:29] LABS: HEMATOCRIT 23.6 % (35.4-49); HEMOGLOBIN 7.9 GM/dL (11.7-16.9); MCH 30.4 pg (25.7-33.7); MCHC 33.5 g/dl (32.0-35.9); MEAN PLT VOLUME 10.8 fl (7.5-11.1); PLATELET COUNT 96 10^3/uL (134-434); RBC 2.59 M/mm3 (4.00-5.60); RDW 17.2 % (11.9-15.9)
[2023-08-03 09:35] LABS: WHITE BLOOD COUNT 29.4 K/mm3 (4.0-10.0)
[2023-08-03] MEDS: FAMOTIDINE 20 MG TABLET PO SCH (09:56)
[2023-08-03] MEDS: SODIUM CHLORIDE 1,000 ML IV SCH (17:32)
[2023-08-04 10:27] LABS: HEMATOCRIT 23.9 % (35.4-49); HEMOGLOBIN 7.8 GM/dL (11.7-16.9); MCHC 32.7 g/dl (32.0-35.9); MEAN CELL VOLUME 91.7 fl (80-96); MEAN PLT VOLUME 11.2 fl (7.5-11.1); PLATELET COUNT 109 10^3/uL (134-434); RDW 18.2 % (11.9-15.9)
[2023-08-04 10:38] LABS: WHITE BLOOD COUNT 37.9 K/mm3 (4.0-10.0)
[2023-08-04 11:44] LABS: ANISOCYTOSIS 0; CORRECTED WBC 33.25 K/mm3; HELMET CELLS 0; HOWELL-JOLLY BODIES 0; MACROCYTOSIS 0; OVALOCYTE 0; ROULEAU 0; SICKELED CELLS 0; TARGET CELLS 0; TEAR DROP CELLS 0; TOXIC GRANULATION 0
[2023-08-04 11:50] LABS: ANISOCYTOSIS 0; CORRECTED WBC 18.17 K/mm3; MACROCYTOSIS 0
[2023-08-04] MEDS: MEROPENEM 1 GM in DEXTROSE 5%-WATER 100 ML IVPB SCH ×2 (13:20→13:26)
[2023-08-04] MEDS: MIDODRINE HCL 5 MG TABLET GT SCH (17:43)
[2023-08-04 23:18] VITALS: RESP 20
[2023-08-05] MEDS ORDERED: SODIUM CHLORIDE 250 ML IV PRN (07:07)
[2023-08-05 09:31] LABS: HEMATOCRIT 22.9 % (35.4-49); HEMOGLOBIN 7.4 GM/dL (11.7-16.9); MCH 29.7 pg (25.7-33.7); MCHC 32.2 g/dl (32.0-35.9); MEAN CELL VOLUME 92.3 fl (80-96); MEAN PLT VOLUME 11.1 fl (7.5-11.1); PLATELET COUNT 115 10^3/uL (134-434); RBC 2.48 M/mm3 (4.00-5.60); RDW 18.2 % (11.9-15.9)
[2023-08-05 09:45] LABS: WHITE BLOOD COUNT 40.6 K/mm3 (4.0-10.0)
[2023-08-05 09:52] LABS: POTASSIUM 3.4 mmol/L (3.5-5.1)
[2023-08-05 09:54] LABS: ALBUMIN 1.2 g/dl (3.4-5.0); CALCIUM 8.4 mg/dL (8.5-10.1)
[2023-08-05 10:19] LABS: BLOOD UREA NITROGEN 64.6 mg/dL (7-18)
[2023-08-05 10:24] LABS: CORRECTED WBC 33.28 K/mm3
[2023-08-05] MEDS: EPOETIN ALFA-EPBX 10,000 UNIT/ML VIAL IVPUSH ONE (14:39)
[2023-08-05] MEDS: MIDODRINE HCL 5 MG TABLET GT SCH (18:14)
[2023-08-05] MEDS: VANCOMYCIN ORAL SOLUTION 125 MG/2.5 ML PEG SCH (18:15)
[2023-08-05] MEDS ORDERED: INSULIN (NOVOLOG) ASPART 100 UNITS/ML 10ML VIAL ONE (20:30)
[2023-08-06] MEDS ORDERED: ACETAMINOPHEN 650 MG/20.3 ML ORAL SOLUTION (CUPS) GT PRN (09:34)
[2023-08-06 13:00] LABS: HEMATOCRIT 22.2 % (35.4-49); HEMOGLOBIN 7.1 GM/dL (11.7-16.9); MCH 29.2 pg (25.7-33.7); MCHC 31.8 g/dl (32.0-35.9); MEAN CELL VOLUME 91.6 fl (80-96); MEAN PLT VOLUME 11.3 fl (7.5-11.1); PLATELET COUNT 111 10^3/uL (134-434); RBC 2.43 M/mm3 (4.00-5.60); RDW 18.7 % (11.9-15.9); WHITE BLOOD COUNT 28.7 K/mm3 (4.0-10.0)
[2023-08-06 13:25] LABS: ANISOCYTOSIS 0; CORRECTED WBC 23.15 K/mm3; MACROCYTOSIS 0; TARGET CELLS 3+
[2023-08-06 13:42] LABS: POTASSIUM 3.6 mmol/L (3.5-5.1)
[2023-08-06 13:43] LABS: CALCIUM 8.6 mg/dL (8.5-10.1)
[2023-08-06 13:44] LABS: ALBUMIN 1.2 g/dl (3.4-5.0); BLOOD UREA NITROGEN 43.3 mg/dL (7-18)
[2023-08-06 13:49] LABS: TOT PROT 6.1 g/dl (6.4-8.2)
[2023-08-06] MEDS: AMINO ACIDS/PROTEIN HYDROLYS 30 ML LIQUID.PKT GT SCH (17:40)
[2023-08-06 21:36] VITALS: BP 126/62; PULSE 117; TEMP 98.8
== END 2023-08-06 21:40 | disposition short-term general hospital (02) | DRG 698 ==
LOC: JER 15:42 → JERBED 19:46 → JICU 22:28 → J7W 08-02 00:09
PROVIDERS: ADMIT Internal Medicine; ATTEND Internal Medicine
PROC: 5A1D70Z Performance of Urinary Filtration, Intermittent, Less than 6 Hours Per Day (ICD-10-PCS; 2023-07-25)
PROC: 30233N1 Transfusion of Nonautologous Red Blood Cells into Peripheral Vein, Percutaneous Approach (ICD-10-PCS; principal; 2023-08-02)
DX: T83.511A Infection and inflammatory reaction due to indwelling urethral catheter, initial encounter (principal); A41.9 Sepsis, unspecified organism; G92.8 Other toxic encephalopathy; I33.0 Acute and subacute infective endocarditis; R53.2 Functional quadriplegia; R65.21 Severe sepsis with septic shock; N18.6 End stage renal disease; J96.90 Respiratory failure, unspecified, unspecified whether with hypoxia or hypercapnia; E87.20 Acidosis, unspecified; I24.89 Other forms of acute ischemic heart disease; N39.0 Urinary tract infection, site not specified; L89.120 Pressure ulcer of left upper back, unstageable; L89.220 Pressure ulcer of left hip, unstageable; L89.150 Pressure ulcer of sacral region, unstageable; B95.62 Methicillin resistant Staphylococcus aureus infection as the cause of diseases classified elsewhere; N40.0 Benign prostatic hyperplasia without lower urinary tract symptoms; L89.210 Pressure ulcer of right hip, unstageable; N31.9 Neuromuscular dysfunction of bladder, unspecified; R62.7 Adult failure to thrive; J44.9 Chronic obstructive pulmonary disease, unspecified; D64.9 Anemia, unspecified; Y84.6 Urinary catheterization as the cause of abnormal reaction of the patient, or of later complication, without mention of misadventure at the time of the procedure; D69.6 Thrombocytopenia, unspecified; Z93.1 Gastrostomy status; R79.89 Other specified abnormal findings of blood chemistry
CPT/HCPCS: 0241U-QW; 36415; 36430; 36600; 70450-TC; 71045-TC-FY; 80048; 80053; 81003; 82272; 82550; 82553; 82803; 82962; 83605; 83735; 84100; 84484; 85025; 85027; 85610; 85730; 86850; 86900; 86901; 86922; 87040; 87086; 87186; 87324; 87449; 87635; 88300-TC; 93005; 93010; 93306-TC; 99285-25; E0186; J0131; J0878; P9038; P9047; P9058; Q5106